=== PATIENT | female | born 1980 | race Caucasian/White ===

== ENCOUNTER 2025-05-10 15:27 | Inpatient (IN) | payer OTHER, SELFPAY ==
[2025-05-10] VITALS (11 sets, daily range): BP systolic 101–117; BP diastolic 52–76; PULSE 93–115; RESP 14–26; TEMP 36.7–37.3; O2SAT 100; BMI 22.7
--- NOTE | ~2025-05-10 | US_ITS ---
CLINICAL HISTORY: Dysfunctional uterine bleeding times 6 months, --- Additional Notes or Special Instructions: Severe times 2-3 days with H H of 2.5 and 10.7, rule out US pelvis transabdominal and transvaginal with Doppler Comparison: None provided Findings: Transabdominal scanning performed for overall anatomy. Transvaginal scanning performed for additional detail. Anteverted uterus is 9.2 cm length. Normal myometrium. Endometrium 10 mm thickness. Nonspecific linear echogenic focus in the cervix with scattered nabothian cysts. Right ovary 4.7 x 3.7 x 4.2 cm. Scattered simple appearing right ovarian cysts largest measuring 2.9 x 2.3 x 2.8 cm. Left ovary 5.2 x 2 x 3.9 cm. Scattered simple appearing left ovarian cysts largest measuring 3.5 x 1.6 x 3.3 cm. Normal color Doppler with arterial/venous spectral tracing of both ovaries. No free fluid. IMPRESSION: No evidence of ovarian torsion. This document has been electronically signed by: Kahlil Escoto MD on 05/10/2025 19:06:24
--- NOTE | 2025-05-10 16:01 | ECG_ITS ---
Test Reason : SOB Blood Pressure : */* mmHG Vent. Rate : 103 BPM Atrial Rate : 103 BPM P-R Int : 140 ms QRS Dur : 64 ms QT Int : 356 ms P-R-T Axes : 54 10 17 degrees QTcB Int : 466 ms Sinus tachycardia Low voltage QRS Nonspecific ST abnormality Abnormal ECG No previous ECGs available Referred By: Generic ED Physician Electronically Signed By: JODY ROBERTS MD
--- NOTE | 2025-05-10 16:06 | ED_ITS ---
HPI - General Adult General Chief complaint: General Medical Stated complaint: feels like shes gonna pass out Time Seen by Provider: 05/10/25 17:17 Source: patient Mode of arrival: ambulatory Limitations: no limitations History of Present Illness ED Provider: Dr. Yoandy High HPI narrative: 44-year-old female , last 9 years prior, 2 C sections, 2nd C- section complicated by anemia requiring transfusion and pulmonary embolism requiring Eliquis treatment (currently not on blood thinners) who presents emergency department for evaluation of dysfunctional uterine bleeding. The patient believes that she is perimenopausal. She states that her menstrual periods have been have changed in character over the last 6 months. She states that she gets onset of heavy bleeding once a month at a last 3 where she is changing her pad or tampon every hour and then the bleeding will slow down but not resolve completely. She states that 2 nights ago she had heavy menstrual bleeding where she was having large clots and changing her pad every 1-2 hours but the bleeding has slowed down. Patient states that today she has gone through 4-5 pads/tampons. Patient states she has noticed a gradual onset of shortness of breath and fatigue. She states she has also noticed dyspnea on exertion to the point where she can not run but he is still able to walk. She states over the last 2-3 days however these symptoms have gotten worse. She denied abdominal pain. She has not noticed any easy bruising, bleeding from her gums or bleeding per rectum. 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 She denies tobacco use. She states that she used to drink heavily but cut down significantly 2-3 years ago. She states she drinks once a week but when she drinks she will drink 3 alcoholic salt so drinks and 2 shots. She states she last drank on , 05/04/2025 (6 days prior). She denies drug use. Social History Social History Alcohol intake: current Alcohol intake frequency: holidays/special occasions only Smoked in Last 30 Days: No Use of substances other than those prescribed or required for medical reasons: No Advance Directives: No Advance Directives Information Provided: Yes Patient : No Physical Exam ED Vital Signs: Vital Signs - 24 hr 05/10/25 15:57 05/10/25 17:33 05/10/25 17:33 Temperature 98.1 F Pulse Rate 109 H 105 H Pulse Rate [Monitor] 105 H Respiratory Rate 18 20 Blood Pressure 109/52 L 102/52 L Pulse Oximetry 100 100 Oxygen Delivery Method Room Air Room Air 05/10/25 18:18 05/10/25 18:39 05/10/25 19:55 Temperature 98.7 F 98.6 F 99.1 F Pulse Rate 106 H 115 H 103 H Pulse Rate [Monitor] Respiratory Rate 26 H 24 H 17 Blood Pressure 104/62 117/55 L 101/66 Pulse Oximetry Oxygen Delivery Method 05/10/25 19:57 05/10/25 20:14 Temperature 99.1 F 99.0 F Pulse Rate 102 H 100 Pulse Rate [Monitor] Respiratory Rate 14 18 Blood Pressure 111/69 111/68 Pulse Oximetry Oxygen Delivery Method BMI result Body Mass Index 22.7 Heart rate elevated 109 otherwise vital signs were normal. Exam: General: Awake, alert in no distress, Pallet. Head: Normocephalic, atraumatic EENT: PERRL, Lids normal, sclera normal, conjunctiva normal, nose normal , ears normal, throat without erythema or exudates Neck: Supple, no adenopathy Lung: breath sounds symmetric, no wheezing, rales or rhonchi Chest: symmetric movement, nontender Heart: regular rate and rhythm, normal S1, S2 no murmurs or rubs Abdomen: soft, non-tender, nondistended, normal bowel sounds Plate Printer: External: Normal Speculum: 1 small blood clot noted in the vagina which was easily cleared with 2 large Q-tips, cervical os is closed and there was dark blood in the os Bimanual exam: No cervical motion tenderness, no tenderness with palpation over the uterus or adnexa Back: no vertebral tenderness, no CVAT Extremities: no deformities, moves all extremities symmetrically Neuro: Awake, alert, oriented, normal speech, cranial nerves intact, moves all extremities symmetrically Psych: Pleasant, cooperative Course Course Course Narrative: RME, this is a rapid medical exam performed by [place] Starr please refer to primary provider for complete H&P- 44-year-old female presents for evaluation of shortness of breath with exertion, dizziness and heavy menstrual bleeding. She is quite pale on exam. Plan for labs, urinalysis and type and screen. Medications Administered Discontinued Medications Generic Name Dose Route Start Last Admin Trade Name Iliana PRN Reason Stop Dose Admin Levonorgestrel 1 each 05/10/25 20:00 05/10/25 20:04 Levonorgestrel 52 Mg Iud INTRAUTERI 05/10/25 20:01 1 each ONCE ONE Administration Medical Decision Making Medical Decision Making MDM Narrative: 44-year-old female , last 9 years prior, 2 C sections, 2nd C- section complicated by anemia requiring transfusion and pulmonary embolism requiring Eliquis treatment (currently not on blood thinners) who presents emergency department for evaluation of dysfunctional uterine bleeding x6 months. The patient believes that she is perimenopausal. She states that her menstrual periods have been have changed in character over the last 6 months. She states that she gets onset of heavy bleeding once a month that lasts 3 to 5 days where she is changing her pad or tampon every hour and then the bleeding will slow down but not resolve completely. She states she has had episodes where she will stop bleeding for 3-5 days but then the slow bleeding will return. She states that 2 nights ago she had heavy menstrual bleeding where she was having large clots and changing her pad/tampons every 1-2 hours. The bleeding has slowed down and she has changed her tampon 4-5 times today. Patient states she has noticed a gradual onset of shortness of breath, dyspnea on exertion and fatigue x6 months. She states over the last 2-3 days however these symptoms have gotten worse. She denied abdominal pain. She has not noticed any easy bruising, bleeding from her gums or bleeding per rectum. Vital signs revealed an elevated heart rate otherwise unremarkable. Exam revealed no abdominal tenderness. Speculum exam revealed 1 small blood clot in the vagina and dark blood coming from a closed cervical os, she had no cervical motion tenderness or tenderness palpation over her uterus. Differential diagnosis: ?Includes but is not limited to dysfunctional uterine bleeding, uterine fibroids, perimenopausal, anemia, electrolyte abnormalities Course: 18:17 My interpretation patient's laboratory evaluation is as follows: WBC elevated 15,000 500. Severe microcytic anemia with an H&H of 2.5 and 10.7 with an MCV of 73. Platelet count was normal 240. PT INR normal. PTT normal. Sodium low 134. Alk-phos elevated 144. AST elevated 37. The patient's severe anemia is most likely secondary to her dysfunctional uterine bleeding in his come on gradually but may have gotten worse secondary to your severe menstrual period 2-3 days prior. On her exam at this time there was only a small clot in the vagina and no significant bleeding coming from the cervical os. She had no cervical motion tenderness or tenderness palpation of her uterus. I ordered 3 units of packed red blood cells to be transfused using our transfuser so that she can received warm blood. The first 2 units of packed red blood cells will each be transfused over an hour using the blood transfused your and then I will re-evaluate her before she gets her 3rd unit. 18:48 I did discuss the patient's presentation with our covering OBGYN, Dr. Gallo and he will come to the emergency department and evaluate the patient determined that the patient needs any further intervention 20:17 Pelvic ultrasound transabdominal and transvaginal with Doppler did not reveal any acute findings to explain the patient's dysfunctional uterine bleed, which is reassuring. Patient was evaluated by Dr. Gallo, please see his note. He did tell me that the patient did not have significant bleeding at this time. He did insert a an IUD to help prevent further bleeding. He recommended outpatient follow-up. Given the patient's severe anemia, the patient will need to be admitted so that we can trend her H&H you make sure she does not have any further bleeding. The patient has completed her 1st unit of PRBCs and is just starting her 2nd unit. I will discuss admission with the covering hospitalist, Dr. Rosado and the patient will be admitted to the hospitalist service. He is recommended that the patient get a total of 5 units of packed red blood cell therefore I ordered 2 more units. Admission/Observation Consideration of admission/observation: Escalation of care including admission/observation considered (Yes) Consult Healthcare Provider Management of the patient was discussed with: Hospitalist (Dr. Rosado) and Sintering Plant Supervisor (OBGYN surgeon, Dr. Gallo) Lab Data MDM Lab Attestation statement: I reviewed the patient's lab results. 05/10/25 16:38 05/10/25 16:38 Labs: Lab Results 05/10/25 Range/Units 16:38 WBC 11.5 H (4.8-10.8) X10*3/uL RBC 1.45 L (4.20-5.50) X10*6/uL Hgb 2.5 L* (12.0-16.0) g/dl Hct 10.7 L* (37.0-47.0) % MCV 73.8 L (80.0-98.0) fL MCH 17.2 L (27.0-33.0) pg MCHC 23.4 L (31.0-35.0) g/dl RDW 24.2 H (11.0-16.0) % Plt Count 340 (160-400) X10*3/uL MPV 10.0 (9.4-12.3) fL Immature Gran % (Auto) 1.1 H (0.0-0.4) % Neut % (Auto) 80.5 H (45-73) % Lymph % (Auto) 12.1 L (20-40) % [place] % (Auto) 5.8 (2-11) % Eos % (Auto) 0.4 (0-4) % Baso % (Auto) 0.1 (0-2) % Lymph # (Auto) 1.4 (1.2-4.9) X10*3/uL [place] # (Auto) 0.7 (0.1-1.2) X10*3/uL Eos # (Auto) 0.1 (0.0-0.4) X10*3/uL Baso # (Auto) 0.0 (0.0-0.2) X10*3/uL Abs Immat Gran (auto) 0.13 H (0.00-0.03) X10*3/uL Absolute Neuts (auto) 9.3 H (2.0-8.3) x10*3/uL Absolute Nucleated RBC 0.090 H (0.0-0.012) X10*3/uL Nucleated RBC % (auto) 0.8 H (0.0-0.2) /100WBC PT 12.4 (10.9-12.4) SEC INR 1.1 (0.9-1.1) APTT 28.5 (26.7-34.1) SEC Sodium 134 L (135-145) mmol/L Potassium 4.7 (3.3-5.1) mmol/L Chloride 102 (96-108) mmol/L Carbon Dioxide 17 L (22-29) mmol/L Anion Gap 20 (12-20) BUN 11 (9-16) mg/dL Creatinine 0.65 (0.5-1.4) mg/dL Estim Creat Clear Calc 89.2 Estimated GFR > 60 Random Glucose 114 (60-115) mg/dL Calcium 9.7 (8.4-10.2) mg/dL Magnesium 2.1 (1.6-2.6) mg/dL Total Bilirubin 0.9 (0.0-1.0) mg/dL AST 37 H (5-31) U/L ALT 29 (0-31) U/L Alkaline Phosphatase 144 H (39-117) U/L Total Protein 7.3 (6.5-8.0) g/dL Albumin 4.5 (3.5-5.0) g/dL Blood Type O Negative Antibody Screen NEGATIVE Crossmatch See Detail Radiology Impression Discussion of test interpretation with radiology: I have reviewed the radiologist's reading. Radiologist Impression: US pelvis transabdominal and transvaginal with Doppler Comparison: None provided Findings: Transabdominal scanning performed for overall anatomy. Transvaginal scanning performed for additional detail. Anteverted uterus is 9.2 cm length. Normal myometrium. Endometrium 10 mm thickness. Nonspecific linear echogenic focus in the cervix with scattered nabothian cysts. Right ovary 4.7 x 3.7 x 4.2 cm. Scattered simple appearing right ovarian cysts largest measuring 2.9 x 2.3 x 2.8 cm. Left ovary 5.2 x 2 x 3.9 cm. Scattered simple appearing left ovarian cysts largest measuring 3.5 x 1.6 x 3.3 cm. Normal color Doppler with arterial/venous spectral tracing of both ovaries. No free fluid. IMPRESSION: No evidence of ovarian torsion. This document has been electronically signed by: Kahlil Escoto MD on 05/10/2025 19:06:24 Critical Care Time Critical Care Time Critical Care Time: Yes Total Critical Care Time: 45 Attestation: Critical Care: The patient was critically ill with a high probability of imminent or life threatening deterioration. I spent greater than 30 minutes of discontinuous time evaluating the patient,delivering critical care at the bedside, discussing and evaluating pertinent data with consultants. Critical care time does not include time spent performing separately billable procedures or teaching. Total time spent performing critical care was 45 minutes. Discharge Plan Discharge Print Language: Kuwaiti
[2025-05-10 16:47] LABS: MANUAL DIFF FLAG NO
[2025-05-10 17:02] LABS: Alanine Aminotransferase 29 U/L (0-31); Albumin Level 4.5 g/dL (3.5-5.0); Alkaline Phosphatase 144 U/L (39-117); Anion Gap 20 (12-20); Aspartate Amino Transferase 37 U/L (5-31); Blood Urea Nitrogen 11 mg/dL (9-16); Calcium 9.7 mg/dL (8.4-10.2); Carbon Dioxide 17 mmol/L (22-29); Chloride 102 mmol/L (96-108); Creatinine Clr Calc Pharmacy 89.2; Estimated Glomerular Filt Rate > 60; Magnesium 2.1 mg/dL (1.6-2.6); Potassium 4.7 mmol/L (3.3-5.1); Sodium 134 mmol/L (135-145); Total Protein 7.3 g/dL (6.5-8.0)
[2025-05-10 17:06] LABS: Imm Gran Abs Auto 0.13 X10*3/uL (0.00-0.03); Imm Gran Pct Auto 1.1 % (0.0-0.4); Lymphocytes Absolute Auto 1.4 X10*3/uL (1.2-4.9); Mean Corpuscular HGB Conc 23.4 g/dl (31.0-35.0); Mean Corpuscular Hemoglobin 17.2 pg (27.0-33.0); Mean Corpuscular Volume 73.8 fL (80.0-98.0); NRBC Abs Auto 0.090 X10*3/uL (0.0-0.012); NRBC Pct Auto 0.8 /100WBC (0.0-0.2); Platelet Count 340 X10*3/uL (160-400); Red Blood Count 1.45 X10*6/uL (4.20-5.50); White Blood Count 11.5 X10*3/uL (4.8-10.8)
[2025-05-10 17:12] LABS: Hemoglobin 2.5 g/dl (12.0-16.0)
[2025-05-10 17:13] LABS: Hematocrit 10.7 % (37.0-47.0)
[2025-05-10 17:17] LABS: INTERNATIONAL NORM RATIO 1.1 (0.9-1.1); Prothrombin Time 12.4 SEC (10.9-12.4)
[2025-05-10 17:55] LABS: Partial Thromboplastin Time 28.5 SEC (26.7-34.1)
--- NOTE | 2025-05-10 18:29 | PC.NURSE ---
Pt comes in feeling short of breath, reports heavy vaginal bleeding with clots, going through 4-5 tampons a day. Skin is pale. Breathing unlabored. She denies chest pain or abd pain. Dr. High at bedside to perform pelvic exam. Pt has bilateral 20g IVs in ACs. ST on tele. Currently has RBCs infusing in LAC at 5mL/min via rapid transfuser. Plan for 2 additional units.
--- NOTE | 2025-05-10 18:35 | PM.GYNCN ---
INFORMATION SYSTEMS SECURITY MANAGER - CN: HPI Data of Consult Consult date: 05/10/25 Primary Care Provider: Unknown Physician Consult Narrative Narrative: I was consulted on Mary Augustine who is a 44 year old female has a history of pulmonary embolism 9 years ago post presenting to emergency department complaining of heavy menstrual cycles of six-months duration associated with passage of large blood clots and pelvic cramping , the patient states that is her vaginal bleeding has slowed down last few days. Patient states that today she has gone through 4-5 pads/tampons. Patient states she has noticed a gradual onset of shortness of breath and fatigue. She states she has also noticed dyspnea on exertion to the point where she can not run but he is still able to walk. In the emergency room H&H was 2.5/10 HCG <2 Pelvic ultrasound showed the following: Findings: Transabdominal scanning performed for overall anatomy. Transvaginal scanning performed for additional detail. Anteverted uterus is 9.2 cm length. Normal myometrium. Endometrium 10 mm thickness. Nonspecific linear echogenic focus in the cervix with scattered nabothian cysts. Right ovary 4.7 x 3.7 x 4.2 cm. Scattered simple appearing right ovarian cysts largest measuring 2.9 x 2.3 x 2.8 cm. Left ovary 5.2 x 2 x 3.9 cm. Scattered simple appearing left ovarian cysts largest measuring 3.5 x 1.6 x 3.3 cm. Normal color Doppler with arterial/venous spectral tracing of both ovaries. No free fluid cc:: CC: OB [facility] Past Medical History Medical History Pulmonary embolus Abnormal uterine bleeding (AUB) Social History Social History Alcohol intake: current Alcohol intake frequency: holidays/special occasions only Patient Tobacco Use Status: Never used Tobacco Smoked in Last 30 Days: No Use of substances other than those prescribed or required for medical reasons: No Advance Directives: No Advance Directives Information Provided: Yes Patient : No Meds Allergies Allergy/AdvReac Type Severity Reaction Status Date / Time No Known Allergies Allergy Verified 05/10/25 16:01 Home Medications ?Medication ?Instructions ?Recorded ?Confirmed ?Last Taken ?Type Beef Liver 1 tab PO DAILY 08/05/10/25 05/09/25 History cod liver oil 5 ml PO DAILY immunity 05/10/25 05/10/25 05/09/25 History magnesium oxide 400 mg PO DAILY 05/10/25 05/10/25 05/09/25 History vitamin E 268 mg (400 unit) capsule 268 mg PO DAILY 05/10/25 05/10/25 05/09/25 History INFORMATION SYSTEMS SECURITY MANAGER Physical Exam Vitals Vital signs: Temp Pulse Resp BP Pulse Ox O2 Del Method 98.7 F 106 H 26 H 104/62 100 Room Air 05/10/25 18:18 05/10/25 18:18 05/10/25 18:18 05/10/25 18:18 05/10/25 17:33 05/10/25 17:33 BMI result Body Mass Index 22.7 INFORMATION SYSTEMS SECURITY MANAGER - Results Labs 05/11/25 05:48 05/11/25 05:48 Labs: Short CBC 05/10/25 Range/Units 16:38 WBC 11.5 H (4.8-10.8) X10*3/uL Hgb 2.5 L* (12.0-16.0) g/dl Hct 10.7 L* (37.0-47.0) % Plt Count 340 (160-400) X10*3/uL BMP 05/10/25 16:38 Sodium 134 L Potassium 4.7 Chloride 102 Carbon Dioxide 17 L BUN 11 Creatinine 0.65 Calcium 9.7 Liver Function 05/10/25 Range/Units 16:38 Total Bilirubin 0.9 (0.0-1.0) mg/dL AST 37 H (5-31) U/L ALT 29 (0-31) U/L Alkaline Phosphatase 144 H (39-117) U/L Albumin 4.5 (3.5-5.0) g/dL Antibody Screen Antibody Screen NEGATIVE 05/10/25 16:38 Assessment and Plan (1) Abnormal uterine bleeding (AUB): Status: Acute GC/CT with BV panel Trichomonas collected Co testing taking Endometrial biopsy done, see procedure note Discussed with the patient the different causes of abnormal bleeding including thyroid disorders, uterine and ovarian pathology, endometrial hyperplasia, carcinoma and other potential causes. Discussed with the patient the results of the work up done and options of treatment including Lysteda, control pills, Mirena IUD, endometrial ablation and hysterectomy. All pros, cons, risks and benefits if each option was discussed with the patient and the patient decided to go ahead with Mirena IUD so a more detailed discussion about it was conducted including mechanism of action, risks (uterine perforation, infection, injury to bladder, bowel, displacement, and others) benefits (hypo menorrhea, amenorrhea, ...). GC/CT were taken and Mirena IUD insertion done, see procedure note If bleeding does not improve will consider other options of treatment including endometrial ablation and/or hysterectomy Instructions given to patient to schedule a follow up appointment within 2 weeks post discharge with repeat CBC and to call after discharge in case of persistent or recurrence of her vaginal bleeding, pelvic pain, temperature above 100.4. (2) Anemia: Status: Acute Recommended blood transfusions, will defer the management of acute intra vascular volume depletion to the emergency room provider/hospitalist team Endometrial Biopsy Details: The patient was counseled regarding the indication and benefits of endometrial sampling to rule out endometrial pathology including not limited to endometrial hyperplasia or endometrial cancer and others; The alternatives (Either do nothing vs. hysteroscopy D&C) & the risks were discussed with the patient including but not limited: pain, uterine perforation, bleeding, infection, possible injury to bladder, bowel, ureter, possible need for blood transfusion with all its possible risks. The patient verbalized understanding all questions answered and signed consent. The patient was placed into the dorsal lithotomy position; a speculum was inserted in the vagina. Using aseptic technique for the procedure, the cervix was cleansed with Betadine. The anterior lip of the cervix was grasped with a single tooth tenaculum. The uterus was sounded to 7 cm with a 4 mm Pipelle was used. Tissues samples were obtained and placed in formalin, in a patient labeled container and sent to the pathology department. At the end of the procedure, there was minimal bleeding noted The patient tolerated the procedure well and was discharged in good condition with the following instructions: Nothing in the vagina until the bleeding stops. No sex until the bleeding stops, to call if any of the following occurs: fever (>100.4), flu-like symptoms, abdominal pain, heavy bleeding, four smelling vaginal discharge. The patient was instructed to schedule a Follow up appointment in 2 weeks to discuss pathology results of the biopsy and treatment options. This note was generated with a voice recognition program. Some errors may have been overlooked during the review of this note. Sometimes these errors may affect the content or meaning of a given sentence. [id number] Biopsy IUD Insert/Removal Details Details: All the contraindications were excluded. The following possible complications were discussed with the patient: Intrauterine , Ectopic , Sepsis, Pelvic Infection, Irregular Bleeding and Amenorrhea, Perforation, Expulsion, Ovarian Cysts, Breast Cancer, The following adverse effects were discussed with the patient: alteration of menstrual bleeding pattern, including: unscheduled uterine bleeding decreased uterine bleeding increased scheduled uterine bleeding female genital tract bleeding ,amenorrhea , genital discharge , vulvovaginitis , breast pain , benign ovarian cyst and associated complications , dysmenorrhea , Gastrointestinal disorders abdominal/pelvic pain, headache/migraine , back pain , acne , depression Alternative options were discussed with the patient including but not limited: control pills, patch, NuvaRing, Depo-medroxyprogesterone acetate, Nexplanon, copper IUD, sterilization, vasectomy, others The procedure was explained in detail to patient , at the end patient signed the informed consent obtained. A no touch technique was used throughout the procedure. A speculum was placed into vagina and cervix was cleaned with betadine). A tenaculum was placed. A plastic sound was advanced through the external and internal os until it reached the fundus of the uterus, the depth was 8 cm. The sound was then withdrawn. The IUD was loaded in a sterile manner and advanced into position. The string was visualized and cut to 3 cm. Tenaculum site hemostatic. All instruments removed from vagina. Patient tolerated the procedure well. NO complications were noted. Patient was instructed to call for fever over 100.4, significant pain unrelieved by Motrin, IUD expulsion, heavy bleeding, or abnormal discharge. In addition, the following clinical considerations were discussed with the patient to call for removal: A stroke or heart attack ,Very severe or migraine headaches ,Unexplained fever ,Yellowing of the skin or whites of the eyes, as these may be signs of serious liver problems , or suspected , Pelvic pain or pain during sex ,HIV positive seroconversion in herself or her partner , Possible exposure to sexually transmitted infections Unusual vaginal discharge or genital sores , severe vaginal bleeding or bleeding that lasts a long time, or if she misses a menstrual period, Inability to feel Mirena's threads Counseled the patient that the IUD does not protect against STI's, recommended use of condoms for the first 7 days post insertion and explained to the patient that condoms are recommended for patients at risk for sexually transmitted infections. Informed the patient that Mirena IUD is FDA approved for 8 years for contraception for 5 years for the treatment of heavy menses Instructed the patient to schedule a Follow up appointment in 4 to 6 weeks following insertion. This note was generated with a voice recognition program. Some errors may have been overlooked during the review of this note. Sometimes these errors may affect the content or meaning of a given sentence. 44429-HII Insertion Procedure code (CPT) selection complete
--- NOTE | 2025-05-10 18:58 | PC.NURSE ---
Addendum entered by Kylee Rodriguez 05/10/25 20:03: correction, 5 ml/hr. Original Note: this rn assumed care of pt, pt blood products running on rapid transfuser at this time, 500ml/hr per provider. pt appears pale, offers no complaints at this time, vss. pt placed onto pelvic bed
--- OUTSIDE RECORDS SUMMARY | 2025-05-10 19:15 | XMS_ITS | Clinical Summary ---
Author Organization [facility] Address [address] [place] [address] Care Team Providers Care Ribbon Inker Name Role Phone Reina Presley DO Primary Care Provider [phone] Surgical History Surgery Date Site/Laterality Comments SECTION 01/21/2016 PROCEDURE: HISTORICAL DELIVERY WISDOM TOOTH EXTRACTION PROCEDURE: HISTORICAL WISDOM TEETH EXTRACTION Medical History Medical History Date Comments Anemia DX:Anemia Family History Medical History Relation Name Comments Arthritis Father Other: no information Maternal Grandfather Other: bone cancer Maternal Grandmother Breast cancer Mother second primary br ca at age 61 Other: anxiety Mother Coronary artery disease Paternal Grandfather tobacco use; excessive alcohol Diabetes Paternal Grandfather Dementia Paternal Grandmother Relation Name Status Comments Brother Alive Daughter Pasquale Alive Father Alive Maternal Grandfather Maternal Grandmother Mother Alive Paternal Grandfather Paternal Grandmother Social History Tobacco Use Types Packs/Day Years Used Date Smoking Tobacco: Former Smokeless Tobacco: Never Alcohol Use Standard Drinks/Week Comments No 0 (1 standard drink = 0.6 oz pur e alcohol) Comments Unknown Sex and Gender Information Value Date Recorded Sex Assigned at Not on file Legal Sex Female 9:19 PM EST Gender Identity Not on file Sexual Orientation Not on file Obstetrics History Last Filed Vital Signs Vital Sign Reading Time Taken Comments Blood Pressure 120/84 12/26/2022 1:31 PM EDT Pulse 94 12/26/2022 1:31 PM EDT Temperature - - Respiratory Rate - - Oxygen Saturation - - Inhaled Oxygen Concentration - - Weight - - Height - - Body Mass Index - - Plan of Treatment Health Maintenance Due Date Last Done Comments Breast Cancer Screening 1982 Hepatitis B Vaccines (1 of 3 - 19+ 3-dose series) 2001 Cervical Cancer Screening: P ap Smear 12/11/2020 12/11/2017 HIV Screening 08/23/2022 Hepatitis C Screening 08/23/2022 Social Influencers of Health Screening 08/23/2022 COVID-19 Vaccine (1 - 2023-2 5 season) 2024 Depression Screening 09/21/2024 Influenza Vaccine (#1) 2025 DTaP,Tdap,and Td Vaccines (3 - Td or Tdap) 03/26/2028 03/26/2018, 10/24/2015 HIB Vaccines Aged Out No longer eligi ble based on patient's age to complete this topic HPV Vaccines Aged Out No longer eligi ble based on patient's age to complete this topic Hepatitis A Vaccines Aged Out No long er eligible based on patient's age to complete this topic IPV Vaccines Aged Out No longer eligi ble based on patient's age to complete this topic MMR Vaccines Aged Out No longer eligi ble based on patient's age to complete this topic Meningococcal ACWY Vaccine Aged Out N o longer eligible based on patient's age to complete this topic Meningococcal B Vaccine Aged Out No l onger eligible based on patient's age to complete this topic Pneumococcal Vaccine: Pediatrics (0 to 5 Years) and At-Risk Patients (6 to 49 Years) Aged Out No longer eligible b ased on patient's age to complete this topic RSV Immunization Patients Under 20 months Aged Out No longer eligible b ased on patient's age to complete this topic Varicella Vaccines Aged Out No longer eligible based on patient's age to complete this topic Procedures Procedure Name Priority Date/Time Associated Diagnosis Comments PAP SMEAR Routine 12/11/2017 from Last 3 Months or Most Recently Relevant to Health Maintenance Results * Pap smear (12/11/2017) 12/11/2017 Narrative HISTORICAL TESTING LAB RESULTING AGENCY - 12/17/2017 12:51 PM EDT [id number] THINPREP PAP, IMAGED: NEGATIVE FOR SQUAMOUS INTRAEPITHELIAL LESION AND MALIGNANCY . RESULT OF APTIMA HIGH RISK HPV ASSAY: NEGATIVE (SEROTYPES 16,18,31,33,35,39,45,51,52,56,58,59,66,68) KELLY MORRIS(ASCP) (CASE ELECTRONICALLY SIGNED 12 17 2017) ADEQUACY: SATISFACTORY. ENDOCERVICAL/TRANSFORMATION ZONE COMPONENT ABSENT. SOURCE: THINPREP PAP HPV ANY DX: REFLEX 16 AND 18, CERVICAL, IMAGED: CLINICAL INFORMATION: HPV ANY DIAGNOSIS. Z12.4, Z34.81, , LMP: 09/09/17 us Eusebio Burden MD LAB CYTOLOGY ORDERABLES Final R esult HISTORICAL TESTING LAB RESULTING AGENCY from Last 3 Months or Most Recently Relevant to Health Maintenance Care Teams Ribbon Inker Relationship Specialty Start Date End Date Reina Presley DO [address] [place] [id number] PCP - General 12/26/22
--- NOTE | 2025-05-10 19:26 | PC.NURSE ---
at bedside with pt
--- NOTE | 2025-05-10 20:02 | PC.NURSE ---
second unit of blood infusing 5ml/min on rapid transfuser. dr. mancuso at bedside doing pelvic exam, pt tolerating well
--- NOTE | 2025-05-10 20:32 | P.HPHOSP_ITS ---
History of Present Illness Date of Service: 05/10/25 Chief Complaint: Dyspnea This iss a 44-year-old female with pertinent history of PE no longer on anticoagulation, menometrorrhagia who presents to the emergency department for evaluation of dyspnea with exertion, dizziness and lightheadedness. Patient states she has had heavy menstrual cycles for the last 6 months with very few days in between without any bleeding. Patient states that 3 days prior to presentation, her menstrual cycle was particularly heavy that lasted for 3-4 days and she was using about 5 pads/tampons throughout the day. Patient has had 2 C sections in the past. Patient noticed that she was having dyspnea which was worse with the aggression, progressive in onset and on the day of presentation, she got dizzy and lightheaded when trying to stand up from a seated position. No fever, chills, nausea, vomiting, abdominal pain, chest pain, palpitations, changes in urinary or bowel habits. In the emergency department, hemoglobin was found to be 2.5. 5 unit PRBC ordered and gynecology was consulted Review of Systems 2 Constitutional: Constitutional: Reports fatigue, Reports lethargy, Reports malaise and Reports weakness Cardiovascular: Cardiovascular: Reports no additional cardiovascular complaints Respiratory: Respiratory: Reports no additional respiratory complaints Gastrointestinal: Gastrointestinal: Reports no additional gastrointestinal complaints Genitourinary: Genitourinary: Reports no additional female genitourinary complaints Neurologic: Reports weakness Endocrine: Endocrine: Reports fatigue [facility] Medical History Pulmonary embolus Abnormal uterine bleeding (AUB) Functional capacity: independent ambulation Pertinent family history: No family history of early CAD Social History Alcohol intake: current Alcohol intake frequency: holidays/special occasions only Smoked in Last 30 Days: No Use of substances other than those prescribed or required for medical reasons: No Advance Directives: No Advance Directives Information Provided: Yes Patient : No Meds Allergies Allergy/AdvReac Type Severity Reaction Status Date / Time No Known Allergies Allergy Verified 05/10/25 16:01 Physical Exam 2 Vital Signs and Narrative: Vital Signs: Last Vital Signs Temp 99.0 F 05/10/25 20:14 Pulse 100 05/10/25 20:14 Resp 18 05/10/25 20:14 BP 111/68 05/10/25 20:14 Pulse Ox 100 05/10/25 17:33 O2 Del Method Room Air 05/10/25 17:33 BMI result Body Mass Index 22.7 Const: Other: Middle-aged female lying in bed in no distress Neck supple, no JVD, pallor + Regular rate and rhythm, S1-S2 heard Regular breath sounds bilaterally, no wheezing or crackles appreciated Abdomen soft nontender, no guarding, no rigidity Patient is awake, alert and oriented to self, place, time and person ; no focal motor deficit Psych: Normal mood No pedal edema Results Labs 05/10/25 16:38 05/10/25 16:38 Labs: Laboratory Results - last 24 hr 05/10/25 16:38 MCV 73.8 L MCH 17.2 L MCHC 23.4 L RDW 24.2 H Plt Count 340 MPV 10.0 Immature Gran % (Auto) 1.1 H Neut % (Auto) 80.5 H Lymph % (Auto) 12.1 L [place] % (Auto) 5.8 Eos % (Auto) 0.4 Baso % (Auto) 0.1 Lymph # (Auto) 1.4 [place] # (Auto) 0.7 Eos # (Auto) 0.1 Baso # (Auto) 0.0 Abs Immat Gran (auto) 0.13 H Absolute Neuts (auto) 9.3 H Absolute Nucleated RBC 0.090 H Nucleated RBC % (auto) 0.8 H PT 12.4 INR 1.1 APTT 28.5 Anion Gap 20 Estim Creat Clear Calc 89.2 Estimated GFR > 60 Random Glucose 114 Calcium 9.7 Magnesium 2.1 Total Bilirubin 0.9 AST 37 H ALT 29 Alkaline Phosphatase 144 H Total Protein 7.3 Albumin 4.5 Blood Type O Negative Antibody Screen NEGATIVE Crossmatch See Detail Assessment and Plan (1) Abnormal uterine bleeding (AUB): Status: Acute (2) Anemia: Status: Acute Plan This iss a 44-year-old female with pertinent history of PE no longer on anticoagulation, menometrorrhagia who presents to the emergency department for evaluation of dyspnea with exertion, dizziness and lightheadedness. #. Symptomatic blood loss anemia due to abnormal uterine bleeding: Will admit patient with cardiac monitoring. 5 unit PRBC ordered in the ER. Closely monitor H&H. Appreciate Gynecology. Obtaining TSH DVT prophylaxis: SCDs Full code Admit as inpatient and will require two night minimum hospital stay for PRBC transfusion, close hemodynamic monitoring (as above), which is not possible in a lesser acute setting. Quality Stroke Does the patient have a stroke diagnosis?: No VTE Prior VTE?: No VTE Risk Level:: Medical - moderate - high VTE Device Contraindication: N/A - Device Ordered VTE Drug Contraindication: Treatment Not Indicated
--- NOTE | 2025-05-10 21:53 | PHA.MEDREC ---
Pharmacy Consult ? Medication Reconciliation Pharmacy has completed the medication reconciliation. Pt takes no prescriptions. Only takes OTC meds.
[2025-05-10 22:16] LABS: Bacterial Vaginosis PCR NEGATIVE (Negative); Candida Group PCR NOT DETECTED (Not Detect); Candida glab krusei PCR NOT DETECTED (Not Detect); Trichomonas vaginalis PCR NOT DETECTED (Not Detect)
[2025-05-10 22:46] LABS: CT PCR NOT DETECTED (Not Detect.); NG PCR NOT DETECTED (Not Detect.)
[2025-05-10 23:28] LABS: MANUAL DIFF FLAG NO
[2025-05-10 23:29] LABS: Imm Gran Abs Auto 0.08 X10*3/uL (0.00-0.03); Imm Gran Pct Auto 0.9 % (0.0-0.4); Lymphocytes Absolute Auto 1.6 X10*3/uL (1.2-4.9); Mean Corpuscular HGB Conc 32.2 g/dl (31.0-35.0); Mean Corpuscular Hemoglobin 25.9 pg (27.0-33.0); Mean Corpuscular Volume 80.6 fL (80.0-98.0); NRBC Abs Auto 0.110 X10*3/uL (0.0-0.012); Platelet Count 221 X10*3/uL (160-400); Red Blood Count 2.47 X10*6/uL (4.20-5.50); White Blood Count 8.8 X10*3/uL (4.8-10.8)
[2025-05-10 23:50] LABS: NRBC Pct Auto 1.3 /100WBC (0.0-0.2)
[2025-05-10 23:53] LABS: Hematocrit 19.9 % (37.0-47.0); Hemoglobin 6.4 g/dl (12.0-16.0)
[2025-05-11] VITALS (10 sets, daily range): BP systolic 100–113; BP diastolic 58–78; PULSE 79–98; RESP 16–22; TEMP 37–37.3; O2SAT 95–98
--- NOTE | 2025-05-11 00:30 | PC.NURSE ---
4th unit of blood started at this time, lung sounds clear bilateral, vss, pt offer no complaints at this time, per allow transfusion to administer over 1 hour
--- NOTE | 2025-05-11 02:27 | PC.NURSE ---
5th blood transfusion started at this time, pt offers no complaints, vss.
[2025-05-11 06:17] LABS: Hematocrit 27.3 % (37.0-47.0); Hemoglobin 8.8 g/dl (12.0-16.0); Mean Corpuscular HGB Conc 32.2 g/dl (31.0-35.0); Mean Corpuscular Hemoglobin 26.3 pg (27.0-33.0); Mean Corpuscular Volume 81.7 fL (80.0-98.0); NRBC Abs Auto 0.160 X10*3/uL (0.0-0.012); Platelet Count 218 X10*3/uL (160-400); Red Blood Count 3.34 X10*6/uL (4.20-5.50); White Blood Count 8.5 X10*3/uL (4.8-10.8)
[2025-05-11 06:18] LABS: NRBC Pct Auto 1.9 /100WBC (0.0-0.2)
[2025-05-11 06:36] LABS: Anion Gap 15 (12-20); Blood Urea Nitrogen 6 mg/dL (9-16); Calcium 8.7 mg/dL (8.4-10.2); Carbon Dioxide 17 mmol/L (22-29); Chloride 107 mmol/L (96-108); Creatinine Clr Calc Pharmacy 113.6; Estimated Glomerular Filt Rate > 60; Potassium 3.8 mmol/L (3.3-5.1); Sodium 135 mmol/L (135-145)
[2025-05-11 06:47] LABS: Thyroid Stimulating Hormone 2.42 uIU/mL (0.32-4.0)
--- NOTE | 2025-05-11 07:37 | PC.NURSE ---
Pt's H and H improved ( 8.8/27.3); skin PWD; pt states no further blood loss after IUD placement in ER; pt denies pain at this time; vss; awaiting bed for admission
--- NOTE | 2025-05-11 08:20 | P.PNOB_ITS ---
POLYSOMNOGRAPHER - Subjective Subjective Date of Service: 05/11/25 Interval history: Doing well this morning bleeding slowed down markedly almost resolved no complaints. The patient is safe 5 units of packed RBCs This a.m. 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 HELPER Physical Exam Vitals Vital signs: Temp Pulse Resp BP Pulse Ox O2 Del Method 98.9 F 89 16 113/78 96 Room Air 05/11/25 08:08 05/11/25 08:08 05/11/25 08:08 05/11/25 08:08 05/11/25 08:08 05/11/25 08:08 BMI result Body Mass Index 22.7 POLYSOMNOGRAPHER - Prog Note: Results Labs 05/11/25 05:48 05/11/25 05:48 Labs: Laboratory Results - last 24 hr 05/10/25 05/10/25 05/10/25 16:38 20:53 23:24 WBC 11.5 H 8.8 RBC 1.45 L 2.47 L D Hgb 2.5 L* 6.4 L* D Hct 10.7 L* 19.9 L* D MCV 73.8 L 80.6 D MCH 17.2 L 25.9 L MCHC 23.4 L 32.2 RDW 24.2 H 21.4 H Plt Count 340 221 D MPV 10.0 8.8 L Immature Gran % (Auto) 1.1 H 0.9 H Neut % (Auto) 80.5 H 70.9 Lymph % (Auto) 12.1 L 18.5 L [place] % (Auto) 5.8 8.0 Eos % (Auto) 0.4 1.1 Baso % (Auto) 0.1 0.6 Lymph # (Auto) 1.4 1.6 [place] # (Auto) 0.7 0.7 Eos # (Auto) 0.1 0.1 Baso # (Auto) 0.0 0.1 Abs Immat Gran (auto) 0.13 H 0.08 H Absolute Neuts (auto) 9.3 H 6.2 Absolute Nucleated RBC 0.090 H 0.110 H Nucleated RBC % (auto) 0.8 H 1.3 H PT 12.4 INR 1.1 APTT 28.5 Sodium 134 L Potassium 4.7 Chloride 102 Carbon Dioxide 17 L Anion Gap 20 BUN 11 Creatinine 0.65 Estim Creat Clear Calc 89.2 Estimated GFR > 60 Random Glucose 114 Calcium 9.7 Magnesium 2.1 Total Bilirubin 0.9 AST 37 H ALT 29 Alkaline Phosphatase 144 H Total Protein 7.3 Albumin 4.5 TSH Beta HCG, Quant < 2 Chlam trachomat DNA PCR NOT DETECTED N.gonorrhoeae DNA (PCR) NOT DETECTED T. vaginalis (PCR) NOT DETECTED Bact vaginosis (PCR) NEGATIVE C. krusei/glabrata (PCR) NOT DETECTED Tess group (PCR) NOT DETECTED Blood Type O Negative Antibody Screen NEGATIVE Crossmatch See Detail 05/11/25 05:48 WBC 8.5 RBC 3.34 L D Hgb 8.8 L D Hct 27.3 L D MCV 81.7 MCH 26.3 L MCHC 32.2 RDW 18.6 H Plt Count 218 MPV 9.1 L Immature Gran % (Auto) Neut % (Auto) Lymph % (Auto) [place] % (Auto) Eos % (Auto) Baso % (Auto) Lymph # (Auto) [place] # (Auto) Eos # (Auto) Baso # (Auto) Abs Immat Gran (auto) Absolute Neuts (auto) Absolute Nucleated RBC 0.160 H Nucleated RBC % (auto) 1.9 H PT INR APTT Sodium 135 Potassium 3.8 Chloride 107 Carbon Dioxide 17 L Anion Gap 15 BUN 6 L Creatinine 0.51 Estim Creat Clear Calc 113.6 Estimated GFR > 60 Random Glucose 86 Calcium 8.7 D Magnesium Total Bilirubin AST ALT Alkaline Phosphatase Total Protein Albumin TSH 2.42 Beta HCG, Quant Chlam trachomat DNA PCR N.gonorrhoeae DNA (PCR) T. vaginalis (PCR) Bact vaginosis (PCR) C. krusei/glabrata (PCR) Tess group (PCR) Blood Type Antibody Screen Crossmatch POLYSOMNOGRAPHER - A/P (1) Abnormal uterine bleeding (AUB): Status: Acute Assessment and Plan: Instructions given the patient to start iron sulfate 325 mg p.o. t.i.d., to follow-up in the office within a week with repeat CBC, to call or go to emergency room in case of recurrence of her vaginal bleeding. All questions answered, the patient verbalized understanding (2) Anemia: Status: Acute Time Spent With Patient Time: Total time managing care of this patient today ____ minutes. Quality Measures - TANK HOUSE OPERATOR HELPER H&P VTE Prior VTE?: No VTE Risk Level:: Medical - moderate - high VTE Device Contraindication: N/A - Device Ordered VTE Drug Contraindication: Treatment Not Indicated
[2025-05-11 08:36] LABS: Hematocrit 28.2 % (37.0-47.0); Hemoglobin 9.2 g/dl (12.0-16.0)
--- NOTE | 2025-05-11 09:20 | MHC.CM.PN ---
CM met with Patient at bedside, in the ED. 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 Home/self care is Patient's goal and CM has initiated and will follow for dc planning. PCP is from [facility]; Patient has never seen this MD. Patient's care is here for transport to home.
--- NOTE | 2025-05-11 11:10 | PC.NURSE ---
Pt resting quietly in room; vss; skin PWD' pt ambulaory in hallway without dizziness or SOB; awaiting DC by admitting provider
--- NOTE | 2025-05-11 11:21 | PM.DS ---
DS: Providers Provider Date of Service: 05/11/25 Date of admission: 05/10/25 20:30 Date of discharge: 05/11/25 Primary care physician: Unknown Physician Attending physician on discharge: Wade Thomas Discharging clinician: Wade Thomas DS: Diagnosis Discharge Diagnosis (1) Abnormal uterine bleeding (AUB): Status: Acute (2) Anemia: Status: Acute DS: Summary Hospital Course Hospital Course: HPI:44-year-old female with pertinent history of PE no longer on anticoagulation, menometrorrhagia who presents to the emergency department for evaluation of dyspnea with exertion, dizziness and lightheadedness. Patient states she has had heavy menstrual cycles for the last 6 months with very few days in between without any bleeding. Patient states that 3 days prior to presentation, her menstrual cycle was particularly heavy that lasted for 3-4 days and she was using about 5 pads/tampons throughout the day. Patient has had 2 C sections in the past. Patient noticed that she was having dyspnea which was worse with the aggression, progressive in onset and on the day of presentation, she got dizzy and lightheaded when trying to stand up from a seated position. No fever, chills, nausea, vomiting, abdominal pain, chest pain, palpitations, changes in urinary or bowel habits. In the emergency department, hemoglobin was found to be 2.5. 5 unit PRBC ordered and gynecology was consulted Hospital course: Abnormal uterine bleeding:seen by service bar cashier -patient is status post 5 PRBC, also s/p mirena placement/Instructions given the patient to start iron sulfate 325 mg p.o. t.i.d., to follow-up in the office within a week with repeat CBC. Recommended a new cold avoid aspirin or nsaid's or blood thinners . follow up with service bar cashier Dr Gallo's office in 1week, in additionGC/CT with BV panel Trichomonas collected by service bar cashier,Endometrial biopsy done, see procedure note. Plan: As above, monitor CBC, follow-up with Dr. Granda's office for further management and test results. Patient advised to call or go to emergency room in case of recurrence of her vaginal bleeding. Above management discussed with the patient in detail length she understand and in agreement with the above plan, time spent 45 minute. All questions answered. Time Attestation Total time managing care of this patient today: 45 mintues. Discharge Coordination Time (in mins): 45 min Quality: Safe Use of Opioids Does Pt have an Active Cancer Diagnosis on the Problem List?: No Quality: Stroke Does the patient have a stroke diagnosis?: No Physical Exam Exam: Exam: Appearance: Alert.? Oriented X3.? cvs: rrr, [id number] . res: clear to auscultation ,no rhonchii or wheezing abd: no rebound or guarding ,nt, bs present. ext pulses present , no cyanosis . neuro: axo3 , nonfocal. Vital Signs: Vital Signs: Last Vital Signs Temp 98.9 F 05/11/25 08:08 Pulse 89 05/11/25 08:08 Resp 16 05/11/25 08:08 BP 113/78 05/11/25 08:08 Pulse Ox 96 05/11/25 08:08 O2 Del Method Room Air 05/11/25 08:08 BMI result Body Mass Index 22.7 DS: Data Data Completed and Pending Pending studies at discharge: Pending at discharge 05/10/25 20:41 Pap Smear [PTH] Stat 05/10/25 20:42 Surgical Path [Surgical] [PTH] Routine Labs on day of discharge: Laboratory Results - last 24 hr 05/10/25 05/10/25 05/10/25 16:38 20:53 23:24 WBC 11.5 H 8.8 RBC 1.45 L 2.47 L D Hgb 2.5 L* 6.4 L* D Hct 10.7 L* 19.9 L* D MCV 73.8 L 80.6 D MCH 17.2 L 25.9 L MCHC 23.4 L 32.2 RDW 24.2 H 21.4 H Plt Count 340 221 D MPV 10.0 8.8 L Immature Gran % (Auto) 1.1 H 0.9 H Neut % (Auto) 80.5 H 70.9 Lymph % (Auto) 12.1 L 18.5 L [place] % (Auto) 5.8 8.0 Eos % (Auto) 0.4 1.1 Baso % (Auto) 0.1 0.6 Lymph # (Auto) 1.4 1.6 [place] # (Auto) 0.7 0.7 Eos # (Auto) 0.1 0.1 Baso # (Auto) 0.0 0.1 Abs Immat Gran (auto) 0.13 H 0.08 H Absolute Neuts (auto) 9.3 H 6.2 Absolute Nucleated RBC 0.090 H 0.110 H Nucleated RBC % (auto) 0.8 H 1.3 H Smear Path Review SEE NOTE PT 12.4 INR 1.1 APTT 28.5 Sodium 134 L Potassium 4.7 Chloride 102 Carbon Dioxide 17 L Anion Gap 20 BUN 11 Creatinine 0.65 Estim Creat Clear Calc 89.2 Estimated GFR > 60 Random Glucose 114 Calcium 9.7 Magnesium 2.1 Total Bilirubin 0.9 AST 37 H ALT 29 Alkaline Phosphatase 144 H Total Protein 7.3 Albumin 4.5 TSH Beta HCG, Quant < 2 Chlam trachomat DNA PCR NOT DETECTED N.gonorrhoeae DNA (PCR) NOT DETECTED T. vaginalis (PCR) NOT DETECTED Bact vaginosis (PCR) NEGATIVE C. krusei/glabrata (PCR) NOT DETECTED Tess group (PCR) NOT DETECTED Blood Type O Negative Antibody Screen NEGATIVE Crossmatch See Detail 05/11/25 05/11/25 05:48 08:19 WBC 8.5 RBC 3.34 L D Hgb 8.8 L D 9.2 L Hct 27.3 L D 28.2 L MCV 81.7 MCH 26.3 L MCHC 32.2 RDW 18.6 H Plt Count 218 MPV 9.1 L Immature Gran % (Auto) Neut % (Auto) Lymph % (Auto) [place] % (Auto) Eos % (Auto) Baso % (Auto) Lymph # (Auto) [place] # (Auto) Eos # (Auto) Baso # (Auto) Abs Immat Gran (auto) Absolute Neuts (auto) Absolute Nucleated RBC 0.160 H Nucleated RBC % (auto) 1.9 H Smear Path Review PT INR APTT Sodium 135 Potassium 3.8 Chloride 107 Carbon Dioxide 17 L Anion Gap 15 BUN 6 L Creatinine 0.51 Estim Creat Clear Calc 113.6 Estimated GFR > 60 Random Glucose 86 Calcium 8.7 D Magnesium Total Bilirubin AST ALT Alkaline Phosphatase Total Protein Albumin TSH 2.42 Beta HCG, Quant Chlam trachomat DNA PCR N.gonorrhoeae DNA (PCR) T. vaginalis (PCR) Bact vaginosis (PCR) C. krusei/glabrata (PCR) Tess group (PCR) Blood Type Antibody Screen Crossmatch Imaging Chest x-ray: My impression: pelvic us: IMPRESSION: No evidence of ovarian torsion. Discharge Plan Discharge Anticipated Discharge Date/Time: 05/11/25 11:15 Patient Disposition: Home, Self-Care Discharge Diagnosis: anemia of acute blood loss Referrals: Karrie Wilkinson [Primary Care Provider, Medical] - 1 Week Gonzales Gallo MD [Physician, SEAL EXTRUSION OPERATOR] - 1 Week Discharge Medications: New ferrous sulfate 325 mg (65 mg iron) tablet 325 mg PO TID Qty: 60 0RF Continued cod liver oil Oil 5 ml PO DAILY vitamin E 268 mg (400 unit) Capsule 268 mg PO DAILY magnesium oxide 400 mg magnesium Tablet 400 mg PO DAILY Beef Liver 1 tab PO DAILY Discharge Orders: Discharge Order (Routine); Ordered 05/11/25 Ordered By: Wade Thomas Diet: Advance to usual diet Activity on Discharge: As tolerated Stand Alone Forms: Patient Portal Discharge page Print Language: Northern Irish Care Plan Goals: as below. Health Concerns: Abnormal uterine bleeding:seen by service bar cashier -s/p mirena placement/Instructions given the patient to start iron sulfate 325 mg p.o. t.i.d., to follow-up in the office within a week with repeat CBC, to call or go to emergency room in case of recurrence of her vaginal bleeding. avoid aspirin or nsaid's or blood thinners . follow up with service bar cashier Dr Gallo's office in 1week. Plan of Treatment: as above. Assessment: as above. Discharge Date/Time: 05/11/25 12:00
--- NOTE | 2025-05-11 11:26 | MHC.CM.PN ---
Patient has been medically cleared for dc to home today, self care.
== END 2025-05-11 12:00 | disposition home or self-care (01) | DRG 517 ==
LOC: HO.ED 19:24 → HO.EDOVER 21:00 → HO.IMC 05-11 07:27 → HO.EDOVER 05-11 08:02
PROVIDERS: Obstetrics & Gynecology; Admitting Provider Student in an Organized Health Care Education/Training Program; Emergency Provider Emergency Medicine Emergency Medical Services; Visit Provider Internal Medicine
DX: N92.1 Excessive and frequent menstruation with irregular cycle (principal); D62 Acute posthemorrhagic anemia; Z79.899 Other long term (current) drug therapy; Z86.711 Personal history of pulmonary embolism
CPT/HCPCS: 36415; 58100; 58300; 76830; 76856; 80048; 80053; 81515; 83735; 84443; 84702; 85014; 85018; 85025; 85027; 85610; 85730; 86850; 86900; 86901; 86923; 86927; 87491; 87591; 87626; 88175; 88305; 93005; 99222; 99285; J7298; P9016

== ENCOUNTER → 2025-05-10 16:01 | Outpatient (BNV) | payer OTHER, SELFPAY | PROVIDERS: Admitting Provider Student in an Organized Health Care Education/Training Program; Emergency Provider Emergency Medicine Emergency Medical Services; Visit Provider Internal Medicine Cardiovascular Disease | DX: R00.0 Tachycardia, unspecified (principal) | CPT/HCPCS: 93010 ==

== ENCOUNTER → 2025-05-10 17:56 | Outpatient (BNV) | payer OTHER, SELFPAY | PROVIDERS: Emergency Provider Emergency Medicine Emergency Medical Services; Visit Provider Radiology Diagnostic Radiology | DX: N83.291 Other ovarian cyst, right side (principal) | CPT/HCPCS: 76830; 76856 ==

== ENCOUNTER → 2025-05-10 19:10 | Outpatient (BNV) | payer OTHER, SELFPAY | PROVIDERS: Emergency Provider Emergency Medicine Emergency Medical Services; Visit Provider Student in an Organized Health Care Education/Training Program | DX: N93.9 Abnormal uterine and vaginal bleeding, unspecified (principal); D64.9 Anemia, unspecified | CPT/HCPCS: 99222; 99239 ==

== ENCOUNTER → 2025-05-10 20:30 | Outpatient (BNV) | payer OTHER, SELFPAY | PROVIDERS: Admitting Provider Student in an Organized Health Care Education/Training Program; Emergency Provider Emergency Medicine Emergency Medical Services; Visit Provider Obstetrics & Gynecology | DX: N93.9 Abnormal uterine and vaginal bleeding, unspecified (principal); D64.9 Anemia, unspecified; Z30.430 Encounter for insertion of intrauterine contraceptive device | CPT/HCPCS: 58100; 58300; 99222; 99232 ==

== ENCOUNTER 2025-05-26 09:36 | Outpatient (AMB) | payer OTHER, SELFPAY ==
--- NOTE | 2025-05-26 09:40 | MHC.OFFVIS ---
Intake Visit Reasons: Follow up AUB/ repeat pap Allergies No Known Allergies Allergy (Verified 05/10/25 16:01) HPI Comments Details: The patient is presenting for follow-up regarding her abnormal uterine bleeding workup and options of treatment. The patient presents to emergency room on 05/10 with severe anemia H&H 2.5/10.7, was admitted received 5 units of blood transfusion H&H prior to discharge was 9.2/28.2 The following workup was done.: H&H= 9.8/28.2 on 05/11 TSH, hCG, GC and chlamydia were negative. Endometrial biopsy pathology showed the following: Endometrium, biopsy: Proliferative endometrium with stromal breakdown; negative for atypia, hyperplasia or malignancy Co testing was done results were unsatisfactory No recent Mammogram Pelvic ultrasound showed the following: Anteverted uterus is 9.2 cm length. Normal myometrium. Endometrium 10 mm thickness. Nonspecific linear echogenic focus in the cervix with scattered nabothian cysts. Right ovary 4.7 x 3.7 x 4.2 cm. Scattered simple appearing right ovarian cysts largest measuring 2.9 x 2.3 x 2.8 cm. Left ovary 5.2 x 2 x 3.9 cm. Scattered simple appearing left ovarian cysts largest measuring 3.5 x 1.6 x 3.3 cm. Normal color Doppler with arterial/venous spectral tracing of both ovaries. No free fluid. Mirena IUD inserted on 05/10/2021 The patient is on iron sulfate 325 mg p.o. t.i.d. Since then bleeding has improved markedly minimal spotting on and off [facility] Medical History Pulmonary embolus Abnormal uterine bleeding (AUB) Social History Alcohol intake: current Alcohol intake frequency: holidays/special occasions only Patient Tobacco Use Status: Never used Tobacco service: No Review of Systems Const All systems reviewed & are unremarkable except as noted in HPI and below Physical Exam General: Yes no CVA tenderness External Female Exam: normal external appearance and normal appearance of the urethra Speculum Exam - Vagina: normal appearance of the vagina, normal palpation, no lesions and no masses Speculum Exam - Cervix: normal appearance of the cervix, normal palpation, no lesions, no masses, nontender and Other cervical findings present (IUD string seen in place) Bimanual exam- vagina & uterus: normal bimanual exam, normal palpation, uterine size normal, normal palpation, uterine shape normal, No Cervical tenderness present and non-tender Bimanual Exam- Adnexa, other: normal adnexae Back/Spine/Pelvis Back: no CVA tenderness Assessment & Plan Assessment & Plan (1) Abnormal uterine bleeding (AUB): Comment: History of PE Code(s): N93.9 - Abnormal uterine and vaginal bleeding, unspecified Category: Medical Plan: Screening mammogram ordered Iron sulfate 325 mg p.o. b.i.d. CBC today and to be repeated in three-months Instructions given to patient to call or go to emergency room in case of recurrence of her vaginal bleeding and to schedule a follow up appointment in three-months (2) Unsatisfactory cervical Papanicolaou smear: Code(s): R87.615 - Unsatisfactory cytologic smear of cervix Category: Medical Plan: Co testing repeated Orders: Orders MM tomosynthesis screening BI Today Z12.31 - Encounter for screening mammogram for malignant neoplasm of breast Complete Blood Count no Diff Today N93.9 - Abnormal uterine and vaginal bleeding, unspecified Complete Blood Count no Diff 3 Months N93.9 - Abnormal uterine and vaginal bleeding, unspecified Coding Level of Care Code Est Pt Level 3 (16037) Diagnoses Abnormal uterine bleeding (AUB) N93.9 Unsatisfactory cervical Papanicolaou smear R87.615
--- OUTSIDE RECORDS SUMMARY | 2025-05-26 10:18 | XMS_ITS | Clinical Summary ---
Author Organization [facility] Address [address] [place] [address] Care Team Providers Care Floating Labor Gang Supervisor Name Role Phone Reina Presley DO Primary Care Provider [phone] Surgical History Surgery Date Site/Laterality Comments SECTION [...] 08/23/2022 Social Influencers of Health Screening 08/23/2022 Depression Screening 09/21/2024 COVID-19 Vaccine (1 - 2023-2 5 season) 2025 Influenza Vaccine (#1) 2025 DTaP,Tdap,and Td Vaccines [...] RESULTING AGENCY - 12/17/2017 12:51 PM EDT [id number] THINPREP PAP, IMAGED: NEGATIVE FOR SQUAMOUS INTRAEPITHELIAL LESION AND MALIGNANCY . RESULT OF APTIMA HIGH RISK HPV ASSAY: NEGATIVE (SEROTYPES 16,18,31,33,35,39,45,51,52,56,58,59,66,68) KELLY MORRSI(ASCP) (CASE ELECTRONICALLY SIGNED 12 17 2017) ADEQUACY: SATISFACTORY. ENDOCERVICAL/TRANSFORMATION ZONE COMPONENT ABSENT. SOURCE: THINPREP PAP HPV ANY DX: REFLEX 16 AND 18, CERVICAL, IMAGED: CLINICAL INFORMATION: HPV ANY DIAGNOSIS. Z12.4, Z34.81, , LMP: 09/09/17 us Eusebio Burden MD LAB CYTOLOGY ORDERABLES Final R esult HISTORICAL TESTING LAB RESULTING AGENCY from Last 3 Months or Most Recently Relevant to Health Maintenance Care Teams Floating Labor Gang Supervisor Relationship Specialty Start Date End Date Reina Presley DO [address] [place] [id number] PCP - General 12/26/22
--- OUTSIDE RECORDS SUMMARY | 2025-05-26 10:18 | XMS_ITS ---
Author Name [facility] Organization Unknown Care Team Organization Name Specialty Phone Email Start Date End Da jocelyn [facility] JUDE GUO Primary Care 07/29/2022 05/09/20 24
== END 2025-05-26 10:31 | disposition home or self-care (01) ==
LOC: HO.HWS 09:36
PROVIDERS: Visit Provider Obstetrics & Gynecology
DX: N93.9 Abnormal uterine and vaginal bleeding, unspecified (principal); R87.615 Unsatisfactory cytologic smear of cervix
CPT/HCPCS: 99213

== ENCOUNTER 2025-05-26 09:36 | Outpatient (REF) | payer OTHER, SELFPAY | END 2025-05-26 09:37 | disposition home or self-care (01) | LOC: HO.LNP 09:36 | PROVIDERS: Visit Provider Obstetrics & Gynecology | DX: N93.9 Abnormal uterine and vaginal bleeding, unspecified (principal); R87.615 Unsatisfactory cytologic smear of cervix; Z12.31 Encounter for screening mammogram for malignant neoplasm of breast; Z11.51 Encounter for screening for human papillomavirus (HPV) | CPT/HCPCS: 87626; 88175; 99212 ==

== ENCOUNTER 2025-07-14 11:41 | Outpatient (REF) | payer OTHER, SELFPAY ==
--- NOTE | ~2025-07-14 | MM_ITS ---
EXAMINATION: MM SCREENING DIGITAL BREAST TOMOSYNTHESIS, BILATERAL CLINICAL INFORMATION: Screening. Asymptomatic. COMPARISON: Mammography: Comparison is made with available priors TECHNIQUE: Digital breast mammography with tomosynthesis is performed in both the craniocaudal and mediolateral oblique views along with computer-aided detection (CAD). FINDINGS: The breasts are heterogeneously dense, which may obscure small masses. There are no significant masses, abnormal calcifications, or other abnormalities. MM/MM tomosynthesis screening BI IMPRESSION: No mammographic evidence of malignancy. ASSESSMENT: BI-RADS Category 1: Negative RECOMMENDATION: Routine annual mammography screening. 1 year F/U This examination should not preclude the clinical evaluation of a suspicious palpable abnormality. This patient's information was entered into a reminder system with a target due date for their next mammogram. Electronically signed by: Kymberly Casanova DO 07/18/2025 09:01 AM ATIYA
--- OUTSIDE RECORDS SUMMARY | 2025-07-14 14:05 | XMS_ITS | Clinical Summary ---
Author Organization [facility] Address [address] [place] [address] Care Team Providers Care Stitcher Standard Machine Name Role Phone Reina Presley DO Primary Care Provider [phone] Surgical History Surgery Date Site/Laterality Comments SECTION [...] of 3 - 19+ 3-dose series) 2001 HPV Vaccines (1 - 3-dose SCD M series) 2009 Cervical Cancer Screening: P ap Smear 12/11/2020 12/11/2017 HIV Screening 08/23/2022 Hepatitis C Screening 08/23/2022 Social Influencers of Health Screening 08/23/2022 Depression Screening 09/21/2024 COVID-19 Vaccine (1 - 2023-2 5 season) 2025 Influenza Vaccine (#1) 2025 DTaP,Tdap,and Td Vaccines (3 - Td or Tdap) 03/26/2028 03/26/2018, 10/24/2015 RSV Immunization Adult Patients (1 - 1-dose 75+ series) 2057 HIB Vaccines Aged Out No longer eligi [...] RESULTING AGENCY - 12/17/2017 12:51 PM EDT [id number] THINPREP PAP, IMAGED: NEGATIVE FOR SQUAMOUS INTRAEPITHELIAL [...] Recently Relevant to Health Maintenance Care Teams Stitcher Standard Machine Relationship Specialty Start Date End Date Reina Presley DO [address] [place] [address] PCP - General 12/26/22
== END 2025-07-14 11:42 | disposition home or self-care (01) ==
LOC: HO.MAMMO 11:41
PROVIDERS: PCP Obstetrics & Gynecology; Visit Provider Obstetrics & Gynecology
DX: Z12.31 Encounter for screening mammogram for malignant neoplasm of breast (principal)
CPT/HCPCS: 77063; 77067

== ENCOUNTER → 2025-07-14 12:00 | Outpatient (BNV) | payer OTHER, SELFPAY | PROVIDERS: PCP Obstetrics & Gynecology; Visit Provider Internal Medicine | DX: Z12.31 Encounter for screening mammogram for malignant neoplasm of breast (principal) | CPT/HCPCS: 77063; 77067 ==

== ENCOUNTER 2025-08-15 13:52 | Outpatient (REF) | payer OTHER, SELFPAY ==
[2025-08-15 14:36] LABS: Hematocrit 34.9 % (37.0-47.0); Hemoglobin 10.1 g/dl (12.0-16.0); Mean Corpuscular HGB Conc 28.9 g/dl (31.0-35.0); Mean Corpuscular Hemoglobin 22.1 pg (27.0-33.0); Mean Corpuscular Volume 76.2 fL (80.0-98.0); NRBC Abs Auto 0.000 X10*3/uL (0.0-0.012); NRBC Pct Auto 0.0 /100WBC (0.0-0.2); Red Blood Count 4.58 X10*6/uL (4.20-5.50); White Blood Count 7.5 X10*3/uL (4.8-10.8)
[2025-08-15 14:56] LABS: Platelet Count 147 X10*3/uL (160-400)
--- OUTSIDE RECORDS SUMMARY | 2025-08-15 17:45 | XMS_ITS | Clinical Summary ---
Author Organization [facility] Address [address] [place] [address] Care Team Providers Care Supervisor Shipping Name Role Phone Reina Presley DO Primary Care Provider [phone] Surgical History Surgery Date Site/Laterality Comments SECTION [...] Depression Screening 09/21/2024 COVID-19 Vaccine (1 - 2024-2 6 season) 2025 Influenza Vaccine (#1) 2025 DTaP,Tdap,and [...] RESULTING AGENCY - 12/17/2017 12:51 PM EDT [id number] THINPREP PAP, IMAGED: NEGATIVE FOR SQUAMOUS INTRAEPITHELIAL [...] Recently Relevant to Health Maintenance Care Teams Supervisor Shipping Relationship Specialty Start Date End Date Reina Presley DO [address] [place] [address] PCP - General 12/26/22
== END 2025-08-15 13:53 | disposition home or self-care (01) ==
LOC: HO.LAB 13:52
PROVIDERS: Visit Provider Obstetrics & Gynecology
DX: N93.9 Abnormal uterine and vaginal bleeding, unspecified (principal)
CPT/HCPCS: 36415; 85027

== ENCOUNTER 2025-09-04 13:34 | Outpatient (REF) | payer OTHER, SELFPAY ==
[2025-09-04 14:57] LABS: Hematocrit 32.6 % (37.0-47.0); Hemoglobin 9.3 g/dl (12.0-16.0); Mean Corpuscular HGB Conc 28.5 g/dl (31.0-35.0); Mean Corpuscular Hemoglobin 21.6 pg (27.0-33.0); Mean Corpuscular Volume 75.8 fL (80.0-98.0); NRBC Abs Auto 0.000 X10*3/uL (0.0-0.012); NRBC Pct Auto 0.0 /100WBC (0.0-0.2); Platelet Count 399 X10*3/uL (160-400); Red Blood Count 4.30 X10*6/uL (4.20-5.50); White Blood Count 9.5 X10*3/uL (4.8-10.8)
--- OUTSIDE RECORDS SUMMARY | 2025-09-04 19:47 | XMS_ITS | Clinical Summary ---
Author Organization [facility] Address [address] [place] [address] Care Team Providers Care Land Manager Name Role Phone Reina Presley DO Primary Care Provider [phone] Surgical History Surgery Date Site/Laterality Comments SECTION [...] on file Sexual Orientation Not on file Last Filed Vital Signs Vital Sign Reading [...] RESULTING AGENCY - 12/17/2017 12:51 PM EDT [id number] THINPREP PAP, IMAGED: NEGATIVE FOR SQUAMOUS INTRAEPITHELIAL [...] Recently Relevant to Health Maintenance Care Teams Land Manager Relationship Specialty Start Date End Date Reina Presley DO [address] [place] [address] PCP - General 12/26/22
== END 2025-09-04 13:35 | disposition home or self-care (01) ==
LOC: HO.LAB 13:34
PROVIDERS: Visit Provider Obstetrics & Gynecology
DX: N93.9 Abnormal uterine and vaginal bleeding, unspecified (principal); T83.32XA Displacement of intrauterine contraceptive device, initial encounter; N83.299 Other ovarian cyst, unspecified side
CPT/HCPCS: 36415; 84702; 85027

== ENCOUNTER 2025-09-04 13:49 | Outpatient (AMB) | payer OTHER, SELFPAY ==
--- NOTE | 2025-09-04 14:12 | A.OFFVIS_ITS ---
Vital Signs 09/04/25 14:18 BP 114/68 Intake Visit Reasons: vaginal bleeding Traditional [facility] Practitioner Required: No Information Interpreted: non-clinical & clinical Legal Officer: Legal Officer Present (Vicki Bethea GEORGINA) Accompanied by: Self / Same As Patient Allergies No Known Allergies Allergy (Verified 09/04/25 14:18) HPI Comments Details: The patient called complaining of vaginal bleeding associated with passage of blood clots and inability to feel the IUD string over the last few days. The patient presented initially to emergency room on 05/10/2025 with low H&H received blood transfusions EMB on 05/11/2025 showed the following: Proliferative endometrium with stromal breakdown; negative for atypia, hyperplasia or malignancy 06/15 Last Co testing was negative Last mammogram in 07/15 was BI-RADS 1 The patient did well till few days ago and started having bleeding after episodes of vomiting H&H ordered stat today was 9.3/32.6 HCG less than 2 Pelvic ultrasound showed the following: Uterus: The uterus is normal in size, measuring 4.7 x 1.5 x 4.4 cm. Uterus is anteverted and retroflexed. Myometrium has a normal echotexture. No focal uterine lesion seen.. There are nabothian cysts. Endometrium: The endometrial stripe measures 10 mm in thickness. The IUD is not visualized. Right ovary: The right ovary measures 4.7 x 1.5 x 1 4 cm. Volume 20.3 mL The right ovary is normal in size and echotexture. 2.2 x 1.6 x 2.1 cm complex cyst, probable corpus luteal cyst. Left ovary: The left ovary measures 4.2 x 1.8 x 2.8 cm. The left ovary is normal in size and echotexture. Multiple follicles present. Pelvic fluid: none. [facility] Medical History Pulmonary embolus Abnormal uterine bleeding (AUB) Social History Alcohol intake: current Alcohol intake frequency: holidays/special occasions only Patient Tobacco Use Status: Never used Tobacco service: No Review of Systems Const All systems reviewed & are unremarkable except as noted in HPI and below Physical Exam Vital Signs: Last Vital Signs BP 114/68 09/04/25 14:18 General: Yes no CVA tenderness External Female Exam: normal external appearance and normal appearance of the urethra Speculum Exam - Vagina: normal appearance of the vagina, normal palpation, no lesions and no masses Speculum Exam - Cervix: normal appearance of the cervix, normal palpation, no lesions, no masses, nontender and Other cervical findings present (No IUD string seen) Bimanual exam- vagina & uterus: normal bimanual exam, normal palpation, uterine size normal, normal palpation, uterine shape normal, No Cervical tenderness present and non-tender Bimanual Exam- Adnexa, other: normal adnexae Back/Spine/Pelvis Back: no CVA tenderness Office Procedures Endometrial Biopsy Details: The patient was counseled regarding the indication and benefits of endometrial sampling to rule out endometrial pathology including not limited to endometrial hyperplasia or endometrial cancer and others; The alternatives (Either do nothing vs. hysteroscopy D&C) & the risks were discussed with the patient including but not limited: pain, uterine perforation, bleeding, infection, possible injury to bladder, bowel, ureter, possible need for blood transfusion with all its possible risks. The patient verbalized understanding all questions answered and signed consent. Urine test done in the office was negative The patient was placed into the dorsal lithotomy position; a speculum was inserted in the vagina. Using aseptic technique for the procedure, the cervix was cleansed with Betadine. The anterior lip of the cervix was grasped with a single tooth tenaculum. The uterus was sounded to 7 cm with a 4 mm Pipelle was used. Tissues samples were obtained and placed in formalin, in a patient labeled container and sent to the pathology department. At the end of the procedure, there was minimal bleeding noted The patient tolerated the procedure well and was discharged in good condition with the following instructions: Nothing in the vagina until the bleeding stops. No sex until the bleeding stops, to call if any of the following occurs: fever (>100.4), flu-like symptoms, abdominal pain, heavy bleeding, four smelling vaginal discharge. The patient was instructed to schedule a Follow up appointment in 2 weeks to discuss pathology results of the biopsy and treatment options. This note was generated with a voice recognition program. Some errors may have been overlooked during the review of this note. Sometimes these errors may affect the content or meaning of a given sentence. 09628-Avmfurvlfvr Biopsy IUD Insert/Removal Details Details: The patient is presenting for Mirena IUD insertion Urine test was done in the office and was negative; All the contraindications were excluded. The following possible complications were discussed with the patient: Intrauterine , Ectopic , Sepsis, Pelvic Infection, Irregular Bleeding and Amenorrhea, Perforation, Expulsion, Ovarian Cysts, Breast Cancer, The following adverse effects were discussed with the patient: alteration of menstrual bleeding pattern, including: unscheduled uterine bleeding decreased uterine bleeding increased scheduled uterine bleeding female genital tract bleeding ,amenorrhea , genital discharge , vulvovaginitis , breast pain , benign ovarian cyst and associated complications , dysmenorrhea , Gastrointestinal disorders abdominal/pelvic pain, headache/migraine , back pain , acne , depression Alternative options were discussed with the patient including but not limited: control pills, patch, NuvaRing, Depo-medroxyprogesterone acetate, Nexplanon, copper IUD, sterilization, vasectomy, others The procedure was explained in detail to patient , at the end patient signed the informed consent obtained. A no touch technique was used throughout the procedure. A speculum was placed into vagina and cervix was cleaned with betadine). A tenaculum was placed. A plastic sound was advanced through the external and internal os until it reached the fundus of the uterus, the depth was 8 cm. The sound was then withdrawn. The IUD was loaded in a sterile manner and advanced into position. The string was visualized and cut to 3 cm. Tenaculum site hemostatic. All instruments removed from vagina. Patient tolerated the procedure well. NO complications were noted. Patient was instructed to call for fever over 100.4, significant pain unrelieved by Motrin, IUD expulsion, heavy bleeding, or abnormal discharge. In addition, the following clinical considerations were discussed with the patient to call for removal: A stroke or heart attack ,Very severe or migraine headaches ,Unexplained fever ,Yellowing of the skin or whites of the eyes, as these may be signs of serious liver problems , or suspected , Pelvic pain or pain during sex ,HIV positive seroconversion in herself or her partner , Possible exposure to sexually transmitted infections Unusual vaginal discharge or genital sores , severe vaginal bleeding or bleeding that lasts a long time, or if she misses a menstrual period, Inability to feel Mirena's threads Counseled the patient that the IUD does not protect against STI's, recommended use of condoms for the first 7 days post insertion and explained to the patient that condoms are recommended for patients at risk for sexually transmitted infections. Informed the patient that Mirena IUD is FDA approved for 8 years for contraception for 5 years for the treatment of heavy menses Instructed the patient to schedule a Follow up appointment in 4 to 6 weeks following insertion. This note was generated with a voice recognition program. Some errors may have been overlooked during the review of this note. Sometimes these errors may affect the content or meaning of a given sentence. 00706-IML Insertion Procedure code (CPT) selection complete Office Meds Mirena 21 mcg/24 hr (up to 8 years) 52 mg intrauterine device Performing Provider: Gonzales Gallo MD Performing Location[place] [facility] Documented (not given) by: Gonzales Gallo MD on 09/04/25 16:44 Dose Route Admin Location Dispensed Lot Number Expiration Date [facility] Application Specialist 1 device intrauterine ea Total Dispensed Waste n/a n/a Assessment & Plan Assessment & Plan (1) Abnormal uterine bleeding (AUB): Comment: History of PE Code(s): N93.9 - Abnormal uterine and vaginal bleeding, unspecified Category: Medical Plan: Iron sulfate 325 mg p.o. b.i.d. recommended. Pelvic ultrasound stat ordered showed no IUD seen in utero, offered the patient an you Mirena IUD insertion in order to down the bleeding, the patient agreed with the plan. GC/CT done EMB repeated to rule out endometrial pathology, new Mirena IUD inserted, see procedure note In addition, the patient is requesting permanent surgical management will refer to [facility] OBGYN minimally invasive film drying machine operator surgery Discussed with the patient the different types of hysterectomies including, vaginal, laparoscopic assisted vaginal, robotic assisted laparoscopic,& abdominal with BSO. All pros, cons, r/b of each approach were discussed the patient including evidence that morbidity is less and recovery is shorter with m inimally invasive approaches to hysterectomy. Discussed with the patient the lack of availability of the robot [employer] robot and/or minimally invasive oracle adf consultant specialist at [facility]. Will refer to [facility] minimally invasive film drying machine operator surgery. Instructed the patient to call our office back in case bleeding recurs, schedule an ultrasound follow-up appointment an IUD check within few weeks, to reach out to our office in case a referral appointment is not scheduled, missed or canceled so that we will assist on rescheduling another appointment, the patient verbalized understanding agreed with the plan. (2) IUD strings lost: Code(s): T83.32XA - Displacement of intrauterine contraceptive device, initial encounter Category: Medical Plan: Discussed with the patient the finding on pelvic exam no IUD seen, ultrasound stat ordered showed no IUD seen in utero, new Mirena IUD inserted for the bleeding today, will order KUB (3) Complex ovarian cyst: Code(s): N83.299 - Other ovarian cyst, unspecified side Category: Medical Plan: Discussed with the patient the complex ovarian cyst by ultrasound. Discussed with the patient the Ultrasound findings, the main limitation of transvaginal ultrasonography alone as a diagnostic tool to distinguish benign from malignant masses relates to its lack of specificity and low positive predictive value for cancer. The differential diagnosis discussed with the patient includes the following but not limited to: benign and malignant gynecological and non-gynecological causes. Discussed with the patient options of treatment , including laparoscopy ovarian cystectomy/oophorectomy vs. expectant management with repeat US in repeating pel ernie US in 6 weeks from previous US. If the ovarian complex cyst is persistent larger and / or more complex looking, will refer to gynecologic Oncology. All pros, cons, risks and benefits of each approach were discussed with the patient including but not limited to a delay in the diagnosis and treatment of ovarian cancer affecting the prognosis; The patient decided to go ahead with expectant management. Instructions given the patient to schedule a 3 months follow-up ultrasound appointment. All questions were answered & the patient verbalized understanding and agreed with the plan. Orders: Orders HCG Quantitative Today N93.9 - Abnormal uterine and vaginal bleeding, unspecified US pelvic and transvaginal Today N93.9 - Abnormal uterine and vaginal bleeding, unspecified, T83.32XA - Displacement of intrauterine contraceptive device, initial encounter AMB Endometrial Biopsy Today N93.9 - Abnormal uterine and vaginal bleeding, unspecified US pelvic and transvaginal 6 Weeks N83.299 - Other ovarian cyst, unspecified side XR KUB Today T83.32XA - Displacement of intrauterine contraceptive device, initial encounter AMB IUD Insertion/Removal - Practice Supplied Today N93.9 - Abnormal uterine and vaginal bleeding, unspecified CT NG by PCR Vag/Cerv Today T83.32XA - Displacement of intrauterine contraceptive device, initial encounter Medications: New Mirena (levonorgestrel) 1 device intrauterine ONCE 1 ea 0RF AUB NS N93.9 - Abnormal uterine and vaginal bleeding, unspecified Coding Level of Care Code Est Pt Level 3 (49998) Procedure Only Diagnoses Abnormal uterine bleeding (AUB) N93.9 IUD strings lost T83.32XA Complex ovarian cyst N83.299 CPT Codes Endometrial Biopsy - CPT: 75902-Rinquxhljhb Biopsy ([id number]) Details - CPT: 44295-HAR Insertion ([id number])
[2025-09-04 14:18] VITALS: BP 114/68
--- OUTSIDE RECORDS SUMMARY | 2025-09-04 20:01 | XMS_ITS | Encounter Summary ---
Author Organization [facility] Prior to 07/22/2024 Address [address] [place] [address] Care Team Providers Care Two Way Radio Technician Name Role Phone Sunni Duff MD Primary Care Provider Unavailable Reina Presley DO Primary Care Provider Unavaila ble Encounter Details Date Type Department Care Team Description 07/18/2018 [facility] Medical Records [address] [place] [id number] Abstract, Provider Social History Tobacco Use Types Packs/Day Years Used Date Smoking Tobacco: Former Smokeless Tobacco: Never Comments:none since 2013; pr eviously intermittently from high school Alcohol Use Standard Drinks/Week Comments No 0 (1 standard drink = 0.6 oz pur e alcohol) Sex Assigned at Date Recorded Not on file documented as of this encounter Plan of Treatment Not on file documented as of this encounter Visit Diagnoses Not on filedocumented in this encounter Care Teams Two Way Radio Technician Relationship Specialty Start Date End Date Sunni Duff MD PCP - General Internal Medicine 09/15/1712/25 Reina Presley DO PCP - General Internal Medicine 12/26/22 documented as of this encounter
--- OUTSIDE RECORDS SUMMARY | 2025-09-04 20:01 | XMS_ITS | Encounter Summary ---
Author Organization [facility] Prior to 07/22/2024 Address [address] [place] [address] Care Team Providers Care Cupola Operator Insulation Name Role Phone Sunni Duff MD Primary Care Provider Unavailable Reina Presley DO Primary Care Provider Unavaila ble Reason for Visit * Reason Onset Date Comments APPOINTMENT 12/24/2017 Encounter Details Date Type Department Care Team Description 12/24/2017 Telephone General Surgery - [place] [address] [phone] Jose Lombardi MD [address] [address] APPOINTMENT Social History Tobacco Use Types Packs/Day Years Used Date Smoking Tobacco: Former Smokeless Tobacco: Never Comments:none since 2013; pr eviously intermittently from high school Alcohol Use Standard Drinks/Week Comments Yes 0 (1 standard drink = 0.6 oz pure alcohol) 1-2 alcohol drinks on occasion, less than weekly Sex Assigned at Date Recorded Not on file documented as of this encounter Miscellaneous Notes * Telephone Encounter - Liss Trinh - 12/24/2017 3:31 PM EDT Message left for patient to see if she can come in earlier, offered on the message for a 3:00p appt. documented in this encounter Plan of Treatment Not on file documented as of this encounter Visit Diagnoses Not on filedocumented in this encounter Care Teams Cupola Operator Insulation Relationship Specialty Start Date End Date Sunni Duff MD PCP - General Internal Medicine 09/15/1712/25 Reina Presley DO PCP - General Internal Medicine 12/26/22 documented as of this encounter
--- OUTSIDE RECORDS SUMMARY | 2025-09-04 20:01 | XMS_ITS | Encounter Summary ---
Author Organization [facility] Prior to 07/22/2024 Address [address] [place] [address] Care Team Providers Care Java Web User Interface Developer Name Role Phone Sunni Duff MD Primary Care Provider Unavailable Reina Presley DO Primary Care Provider Unavaila ble Encounter Details Date Type Department Care Team Description 09/08/2018 Orders Only Medical Records [address] [place] [id number] Abstract, Provider Social History Tobacco Use Types [...] on file documented as of this encounter Procedures Procedure Name Priority Date/Time Associated Diagnosis Comments OUTSIDE LAB Routine 07/17/2018 documented in this encounter Results * OUTSIDE LAB (07/17/2018) Provider Abstract LAB documented in this encounter Visit Diagnoses Not on filedocumented in this encounter Care Teams Java Web User Interface Developer Relationship Specialty Start Date End Date Sunni Duff MD PCP - General Internal Medicine 09/15/1712/25 Reina Presley DO PCP - General Internal Medicine 12/26/22 documented as of this encounter
--- OUTSIDE RECORDS SUMMARY | 2025-09-04 20:01 | XMS_ITS | Clinical Summary ---
Author Organization [facility] Prior to 07/22/2024 Address [address] [place] [address] Care Team Providers Care Remote Medical Coder Name Role Phone Reina Presley DO Primary Care Provider Unavaila ble Allergies Active Allergy Reactions Severity Noted Date Comments Cats 12/11/2017 Medications Medication Sig Dispensed Refills Start Date End Date Status ciprofloxacin (CILOXAN) 0.3 % ophthalmic solution On day 1-2: Apply 1 drop to effected eye every two hours. On days 3-7: Apply 1 drop to effected eye every 4 hours. 5 mL 0 12/26/2022 Active Active Problems Problem Noted Date Other pulmonary embolism without acute c or pulmonale 07/23/2018 Abnormal glucose tolerance test (GTT) du ring , antepartum 03/26/2018 Overview: 04/09/2018 3hr normal Family history of breast cancer 10/16/19 18 Overview: Mother diagnosed at age 45; rediagnosed with bilateral breast cancer at age 60 Patient myRisk negative. Tyrer-Cuzick Score = 31.1% = high risk. Needs annual mammo and bilateral breast MRI going forward; currently and plans to breast feed. Clinical breast exam every 6-12 mos. Resolved Problems Problem Noted Date Resolved Date AMA (advanced maternal age) multigravida 35+ 02/201808/18/2018 Overview: NSTs at 36 weeks Previous section 01/08/20182017 Overview: First baby delivered by section due to intolerance to labor. Only got to 4 cm Patient is considering trial of labor. 05/28/2018 initial check list completed - OP reports reviewed Uterine Incision: Low segment transverse - is noted report sent to scanning C/s scheduled on due date if labor prior will try and Rh negative status during 11/30/2017 08/18/2018 Overview: Blood Type is O NEGATIVE. Rhogam: 04/09/2018 care, subsequent 11/27/2017 08/18/2018 Overview: Zika screen: neg 1. [facility] site: [place] 2. Delivery site: [facility] 3. Dating criteria: LMP confirmed by 1st trimester ultrasound 3. Blood type: O NEGATIVE 4. Genetic screening: Panorama Screen: Low Risk -- Female 5. GBS: Date: 05/28/2018 6. FOB name: Martin 7. Plans A. Epidural or other pain management -open if tolac B. Labor support identified - martin Siddiqi Tdap - Date: 03/26/18 D. Breast or Bottle feed: breast E. Baby's name - Immunizations Name Administration Dates Next Due Tdap 03/26/2018,10/24/2015 Family History Medical History Relation Name Comments Arthritis Father no information Maternal Grandfather bone cancer Maternal Grandmother Cancer of the Breast Mother second primary br ca at age 61 anxiety Mother CAD Paternal Grandfather tobacco use; excessive alcohol Diabetes Paternal Grandfather Dementia Paternal Grandmother Relation Name Status Comments Brother Alive Daughter Pasquale Alive Father Alive Maternal Grandfather Maternal Grandmother Mother Alive Paternal Grandfather Paternal Grandmother Social History Tobacco Use Types Packs/Day Years Used Date Smoking Tobacco: Former Smokeless Tobacco: Never Tobacco Cessation:Counseling Given: Yes Comments:none since 2013; previously intermittently from high school Alcohol Use Standard Drinks/Week Comments No 0 (1 standard drink = 0.6 oz pur e alcohol) Sex Assigned at Date Recorded Not on file Last Filed Vital Signs Vital Sign Reading Time Taken Comments Blood Pressure 120/84 12/26/2022 1:31 PM EDT Pulse 94 12/26/2022 1:31 PM EDT Temperature 36.7 C (98 F) 12/26/2022 1:31 PM EDT Respiratory Rate 14 07/06/2020 2:10 PM EDT Oxygen Saturation 98% 12/26/2022 1:31 PM EDT Inhaled Oxygen Concentration - - Weight 62 kg (136 lb 9.6 oz) 07/06/2020 2:10 PM EDT Height 170.2 cm (5' 7 ) 07/06/2020 2:10 PM EDT Body Mass Index 21.39 07/06/2020 2:10 PM EDT Plan of Treatment Health Maintenance Due Date Last Done Comments Covid-19 Vaccine (#1) 03/12/1983 Breast Cancer High Risk Screening (Annual Breast MRI) 2000 CERVICAL CANCER SCREENING 12/11/2020 12/11/2017 BASELINE HEALTH EXAM 40-64 2022 10/16/2017, MAMMOGRAM 2022 CHOLESTEROL SCREENING 10/16/2022 10/16/2017 BMI CHECK/ADVISE 09/21/2024 11/20/2017, 10/16/2017 DEPRESSION SCREENING/FOLLOWUP 09/21/2024 SOCIAL NEEDS SCREENING 09/21/2024 INFLUENZA (#1) 2025 10/16/2017 (Refused) DTAP/TDAP/TD (3 - Td or Tdap) 03/26/2028 03/26/2018, 10/24/2015 PNEUMOCOCCAL VACCINE FOR HIG H RISK PATIENTS (#1) 2047 Care Teams Remote Medical Coder Relationship Specialty Start Date End Date Reina Presley DO PCP - General Internal Medicine 12/26/22
--- OUTSIDE RECORDS SUMMARY | 2025-09-04 20:01 | XMS_ITS | Encounter Summary ---
Author Organization [facility] Prior to 07/22/2024 Address [address] [place] [address] Care Team Providers Care Senior Mortgage Loan Processor Name Role Phone Reina Presley DO Primary Care Provider Unavaila ble Encounter Details Date Type Department Care Team Description 12/29/2022 Orders Only Medical Records [address] [place] [address] Ash Paulino PA-C [facility] [place] [address] Social History Tobacco Use Types Packs/Day Years Used Date Smoking Tobacco: Former Smokeless Tobacco: Never Comments:none since 2013; pr eviously intermittently from high school Alcohol Use Standard Drinks/Week Comments No 0 (1 standard drink = 0.6 oz pur e alcohol) Sex Assigned at Date Recorded Not on file COVID-19 Exposure Response Date Recorded In the last 10 days, have yo u been in contact with someone who was confirmed or suspected to have Coronavirus/COVID-19? No / Unsure 12/26/2022 1:08 PM EDT documented as of this encounter Plan of Treatment Not on file documented as of this encounter Procedures Procedure Name Priority Date/Time Associated Diagnosis Comments OUTSIDE LAB Routine 12/26/2022 documented in this encounter Results * OUTSIDE LAB (12/26/2022) Ash Paulino PA-C LAB documented in this encounter Visit Diagnoses Not on filedocumented in this encounter Care Teams Senior Mortgage Loan Processor Relationship Specialty Start Date End Date Reina Presley DO PCP - General Internal Medicine 12/26/22 documented as of this encounter
--- OUTSIDE RECORDS SUMMARY | 2025-09-04 20:01 | XMS_ITS | Encounter Summary ---
Author Organization [facility] Prior to 07/22/2024 Address [address] [place] [address] Care Team Providers Care Utility Repairer Name Role Phone Sunni Duff MD Primary Care Provider Unavailable Reina Presley DO Primary Care Provider Unavaila ble Encounter Details Date Type Department Care Team Description 09/03/2018 Orders Only Medical Records [address] [place] [phone] Abstract, Provider Social History Tobacco Use Types [...] Name Priority Date/Time Associated Diagnosis Comments OUTSIDE EKG Routine 07/17/2018 documented in this encounter Results * OUTSIDE EKG (07/17/2018) Provider Abstract CARDIOLOGY documented in this encounter Visit Diagnoses Not on filedocumented in this encounter Care Teams Utility Repairer Relationship Specialty Start Date End Date Sunni Duff MD PCP - General Internal Medicine 09/15/1712/25 Reina Presley DO PCP - General Internal Medicine 12/26/22 documented as of this encounter
--- OUTSIDE RECORDS SUMMARY | 2025-09-04 20:01 | XMS_ITS | Encounter Summary ---
Author Organization [facility] Prior to 07/22/2024 Address [address] [place] [address] Care Team Providers Care Computer Programmer Name Role Phone Sunni Duff MD Primary Care Provider Unavailable Reina Presley DO Primary Care Provider Unavaila ble Encounter Details Date Type Department Care Team Description 09/09/2018 Orders Only Medical Records [address] [place] [address] Abstract, Provider Social History Tobacco Use Types [...] Name Priority Date/Time Associated Diagnosis Comments OUTSIDE CT Routine 07/17/2018 documented in this encounter Results * OUTSIDE CT (07/17/2018) Provider Abstract RADIOLOGY documented in this encounter Visit Diagnoses Not on filedocumented in this encounter Care Teams Computer Programmer Relationship Specialty Start Date End Date Sunni Duff MD PCP - General Internal Medicine 09/15/1712/25 Reina Presley DO PCP - General Internal Medicine 12/26/22 documented as of this encounter
--- OUTSIDE RECORDS SUMMARY | 2025-09-04 20:01 | XMS_ITS | Encounter Summary ---
Author Organization [facility] Prior to 07/22/2024 Address [address] [place] [address] Care Team Providers Care Lap Hand Tool Name Role Phone Sunni Duff MD Primary Care Provider Unavailable Reina Presley DO Primary Care Provider Unavaila ble Encounter Details Date Type Department Care Team Description 12/01/2017 Zika Virus Medical Records [address] [place] [address] Abstract, Provider Social History Tobacco Use Types [...] on filedocumented in this encounter Care Teams Lap Hand Tool Relationship Specialty Start Date End Date Sunni Duff MD PCP - General Internal Medicine 09/15/1712/25 Reina Presley DO PCP - General Internal Medicine 12/26/22 documented as of this encounter
--- OUTSIDE RECORDS SUMMARY | 2025-09-04 20:01 | XMS_ITS | Encounter Summary ---
Author Organization [facility] Prior to 07/22/2024 Address [address] [place] [address] Care Team Providers Care Agricultural Purchasing Agent Name Role Phone Sunni Duff MD Primary Care Provider Unavailable Reina Presley DO Primary Care Provider Unavaila ble Encounter Details Date Type Department Care Team Description 12/05/2017 Release of Information Medical Records [address] [place] [id number] Abstract, Provider Social History Tobacco Use Types [...] on filedocumented in this encounter Care Teams Agricultural Purchasing Agent Relationship Specialty Start Date End Date Sunni Duff MD PCP - General Internal Medicine 09/15/1712/25 Reina Presley DO PCP - General Internal Medicine 12/26/22 documented as of this encounter
--- OUTSIDE RECORDS SUMMARY | 2025-09-04 20:01 | XMS_ITS | Encounter Summary ---
Author Organization [facility] Prior to 07/22/2024 Address [address] [place] [address] Care Team Providers Care Wood Shop Teacher Name Role Phone Sunni Duff MD Primary Care Provider Unavailable Reina Presley DO Primary Care Provider Unavailphoenix lopes Encounter Details Date Type Department Care Team Description 10/26/2017 Telephone Adult Medicine - [address] [address] Isabella Ortiz NP Social History Tobacco Use Types Packs/Day Years Used Date Smoking Tobacco: Former Comments:none since 2013; pr eviously intermittently from high school Alcohol Use Standard Drinks/Week Comments Yes 0 (1 standard drink = 0.6 oz pure alcohol) 1-2 alcohol drinks on occasion, less than weekly Sex Assigned at Date Recorded Not on file documented as of this encounter Miscellaneous Notes * Telephone Encounter - Stephanie Martinez M.A. - 10/27/2017 8:33 AM EST Patient advised about message [email or web address]. * Telephone Encounter - Isabella Ortiz NP - 10/26/2017 9:28 AM EST Please let pt know that her iron is low. She should start taking an iron supplement, which is available over the counter. However, I can prescribe if she would like. She should also look up iron richfoods and try to incorporate more of these into her diet. Thanks documented in this encounter Plan of Treatment Not on file documented as of this encounter Visit Diagnoses Not on filedocumented in this encounter Care Teams Wood Shop Teacher Relationship Specialty Start Date End Date Sunni Duff MD PCP - General Internal Medicine 09/15/1712/25 Reina Presley DO PCP - General Internal Medicine 12/26/22 documented as of this encounter
--- OUTSIDE RECORDS SUMMARY | 2025-09-04 20:02 | XMS_ITS | Encounter Summary ---
Author Organization [facility] Prior to 07/22/2024 Address [address] [place] [address] Care Team Providers Care Queen'S Counsel Name Role Phone Sunni Duff MD Primary Care Provider Unavailable Reina Presley DO Primary Care Provider Unavaila ble Encounter Details Date Type Department Care Team Description 06/21/2018 [facility] Medical Records [address] [place] [id number] Abstract, Provider Social History Tobacco Use Types [...] on filedocumented in this encounter Care Teams Queen'S Counsel Relationship Specialty Start Date End Date Sunni Duff MD PCP - General Internal Medicine 09/15/1712/25 Reina Presley DO PCP - General Internal Medicine 12/26/22 documented as of this encounter
== END 2025-09-04 15:21 | disposition home or self-care (01) ==
LOC: HO.HWS 13:49
PROVIDERS: Visit Provider Obstetrics & Gynecology
DX: N93.9 Abnormal uterine and vaginal bleeding, unspecified (principal); T83.32XA Displacement of intrauterine contraceptive device, initial encounter; N83.299 Other ovarian cyst, unspecified side; Z30.430 Encounter for insertion of intrauterine contraceptive device
CPT/HCPCS: 58100; 58300; 99213

== ENCOUNTER 2025-09-04 15:10 | Outpatient (REF) | payer OTHER, SELFPAY ==
--- NOTE | ~2025-09-04 | US_ITS ---
EXAMINATION: US PELVIS TRANSABDOMINAL AND TRANSVAGINAL HISTORY: N93.9 - Abnormal uterine and vaginal bleeding, unspecified IUD strings not visible COMPARISON: Ultrasound 05/10/2025 TECHNIQUE: Transabdominal and endovaginal real-time 2D newman-scale ultrasound was performed. FINDINGS: LMP: Not documented Uterus: The uterus is normal in size, measuring 4.7 x 1.5 x 4.4 cm. Uterus is anteverted and retroflexed. Myometrium has a normal echotexture. No focal uterine lesion seen.. There are nabothian cysts. Endometrium: The endometrial stripe measures 10 mm in thickness. The IUD is not visualized. Right ovary: The right ovary measures 4.7 x 1.5 x 1 4 cm. Volume 20.3 mL The right ovary is normal in size and echotexture. 2.2 x 1.6 x 2.1 cm complex cyst, probable corpus luteal cyst. Left ovary: The left ovary measures 4.2 x 1.8 x 2.8 cm. The left ovary is normal in size and echotexture. Multiple follicles present. Pelvic fluid: none. US/US pelvic and transvaginal IMPRESSION: * The IUD is not visualized. Clinically correlate. Further evaluation with CT scan as clinically indicated. * Right ovarian 2.2 cm complex cyst, probable corpus luteal cyst. Findings were conveyed to Gonzales Gallo M.D. by secure text message on 09/04/2025 at 4:25pm Electronically signed by: Michael Holland MD 09/04/2025 04:26 PM [facility] [place]
== END 2025-09-04 15:11 | disposition home or self-care (01) ==
LOC: HO.US 15:10
PROVIDERS: Visit Provider Obstetrics & Gynecology
DX: N93.9 Abnormal uterine and vaginal bleeding, unspecified (principal); T83.32XA Displacement of intrauterine contraceptive device, initial encounter
CPT/HCPCS: 76830; 76856

== ENCOUNTER 2025-09-04 16:47 | Outpatient (REF) | payer OTHER, SELFPAY ==
[2025-09-05 10:11] LABS: CT PCR NOT DETECTED (Not Detect.); NG PCR NOT DETECTED (Not Detect.)
== END 2025-09-04 16:48 | disposition home or self-care (01) ==
LOC: HO.LNP 16:47
PROVIDERS: Visit Provider Obstetrics & Gynecology
DX: N93.9 Abnormal uterine and vaginal bleeding, unspecified (principal); T83.32XA Displacement of intrauterine contraceptive device, initial encounter; Z20.2 Contact with and (suspected) exposure to infections with a predominantly sexual mode of transmission
CPT/HCPCS: 87491; 87591; 88305

== ENCOUNTER 2025-09-08 10:05 | Outpatient (REF) | payer OTHER, SELFPAY ==
--- NOTE | ~2025-09-08 | XR_ITS ---
EXAMINATION: XR ABDOMEN 1 VIEW (KUB) HISTORY: T83.32XA - Displacement of intrauterine contraceptive device, initial... COMPARISON: There are no prior studies available for comparison. FINDINGS: Two supine views of the abdomen are submitted. The bowel gas pattern is unremarkable, without evidence of mechanical obstruction. An IUD is noted in the midline of the pelvis. There are phleboliths bilaterally. There are no abnormal soft tissue masses. The bones are intact. XR/XR KUB IMPRESSION: IUD in the midline of the pelvis. Electronically signed by: Casimiro Hendrix MD 09/08/2025 10:34 AM [facility]
--- OUTSIDE RECORDS SUMMARY | 2025-09-08 11:21 | XMS_ITS | Clinical Summary ---
Author Organization [facility] Address [address] [place] [id number] Care Team Providers Care Dental Office Assistant Name Role Phone Reina Presley DO Primary Care Provider [phone] Surgical History Surgery Date Site/Laterality Comments SECTION [...] RESULTING AGENCY - 12/17/2017 12:51 PM EDT [id number] THINPREP PAP, IMAGED: NEGATIVE FOR SQUAMOUS INTRAEPITHELIAL [...] Recently Relevant to Health Maintenance Care Teams Dental Office Assistant Relationship Specialty Start Date End Date Reina Presley DO [address] [place] [address] PCP - General 12/26/22
== END 2025-09-08 10:06 | disposition home or self-care (01) ==
LOC: HO.XRAY 10:05
PROVIDERS: Visit Provider Obstetrics & Gynecology
DX: T83.32XA Displacement of intrauterine contraceptive device, initial encounter (principal)
CPT/HCPCS: 74018

== ENCOUNTER → 2025-09-08 10:11 | Outpatient (BNV) | payer OTHER, SELFPAY | PROVIDERS: Visit Provider Radiology Diagnostic Radiology | DX: T83.32XA Displacement of intrauterine contraceptive device, initial encounter (principal) | CPT/HCPCS: 74018 ==